=== PATIENT | male | born 1940 | race Caucasian/White ===

== ENCOUNTER 2017-10-07 06:04 | Day surgery (SDC) | payer MEDICARE, MEDICAID, SELFPAY ==
[2017-10-07] VITALS (13 sets, daily range): BP systolic 90–180; BP diastolic 65–98; PULSE 78–117; RESP 16–18; TEMP 36.3–43; O2SAT 93–100
--- NOTE | 2017-10-07 08:17 | PC.NURSE ---
[id number] fr coudae munoz catheter inserted per Dr. Riley. Multiple attempts per MARK Armenta and Dr. Riley r/t difficulty of insertion. No bleeding or clots noted after insertion. Will continue to monitor urinary output t/o procedure.
--- NOTE | 2017-10-07 09:24 | P.OP_ITS ---
Date of procedure: 10/07/17 Pre-op Diagnosis:: Right inguinal hernia Post-op diagnosis:: same Procedure performed:: Open right inguinal hernia repair with placement of large Bard prefix mesh Surgeon:: Adma Riley MD Anesthesia: ERICA Estimated blood loss (mL): 50 Clinical Note:: Patient is a 77-year-old white male. He is what of a poor historian. He was referred for evaluation of right inguinal hernia. He states that for about 3 or 4 months he has had some swelling in the right groin area. Denies any severe pain. He had what appeared to be a right inguinal hernia on examination. He was sent for cardiology evaluation due to history of chronic atrial fibrillation and was deemed an acceptable risk for surgery. Due to the patient's advanced age, comorbidities, and lack of definite hernia on the left side plan was made for open repair. Operative findings:: There was a large direct hernia with a moderate indirect hernia Operative note:: Patient was taken to the operating room. He was positioned in a supine position. General anesthesia was induced. He did have a Verma catheter placed for bladder decompression and placement was somewhat difficult due to his prior prostate surgery. Ultimately 12 Amharic coud? type catheter was placed. He was prepped and draped in the standard surgical. Oblique incision was made in the right inguinal area and dissection was carried down through subcutaneous tissues and Grover's fascia using electrocautery. External oblique muscle was exposed and cleaned free of extraneous tissues. The muscle was opened along the length of its fibers. There was obvious direct hernia protrusion. The inguinal nerve was unable to be clearly identified due to market attenuation of the tissues. The cord structures were dissected free and encircled with a Jaquelin drain. As stated before there was a large direct hernia. Inspection of the cord revealed an indirect hernia as well. This was dissected free from the cord and herniated preperitoneal fat was able to be reduced into the internal ring. Large sized Bard prefix mesh plug was placed within the region of the internal ring and secured to the shelving edge of the inguinal ligament and to the transversalis muscle with several interrupted 2-0 Vicryl sutures. Next the onlay mesh was secured to the inguinal floor suturing it to Nasim's ligament medially and to the transversalis muscle fascia anteriorly medially with interrupted 2-0 PDS horizontal mattress sutures. There was secured inferiorly and laterally to the shelving edge of the inguinal ligament with running 2-0 PDS. The 2 coat tails were secured to one another with a couple of interrupted 2-0 PDS to reconstruct the internal ring. Cord structures were then returned to the normal anatomic position. There was good hemostasis. External oblique muscle was closed with a running 2-0 Vicryl. Grover's fascia was closed with running 3-0 Vicryl. Skin was closed with running 4-0 Monocryl in a subcuticular fashion. Clean dry sterile dressing was applied. There were no immediate complications. Pathology: none sent Condition: stable Disposition: PACU Complications:: None immediately noted
--- NOTE | 2017-10-07 09:27 | P.PN_ITS ---
[facility] Anesthesia Checklist - Airway Assessment C-Spine Mobility Assessed: Yes (MP2) TMJ Mobility Assessed: Yes Dentition: Edentulous - Anesthesia Plan Anesthesia Risk discussed: Yes Anesthesia Plan: Verified ASA Class: III Anesthesia Type: General [facility] Anesthesia HX I have reviewed the patient's past medical history: Yes Medical History: Reports:: Atrial Fibrillation, Hyperlipidemia, Hypertension, Renal Disease Denies:: Diabetes Mellitus Type 1, Seizures Laterality Cases: Right: Other Other Surgeries: No: Pacemaker Amputation: No Fractures: No Comment: prostate, thumb sx *Family Hx:: Heart Attack
--- NOTE | 2017-10-07 09:27 | HMH.ANESI ---
[facility] Anesthesia Record Part I Intake, IV Amount: 1,200 Estimated blood loss (mL): 10 Urine output (mL): 25 Blood Pressure: 158/68 SaO2: 99 Pulse Rate: 89 Respiratory Rate: 16 Temperature: 97.6 F Patient is:: Drowsy Stable to PACU at:: 07:19
--- NOTE | 2017-10-07 09:30 | HMH.ANESII ---
[facility] Anesthesia Record Part II Discharge Time: 09:50 Destination: [facility] PACU nurse assessment reviewed?: Yes Patient Condition:: Good Anesthesia Complications:: None
--- NOTE | 2017-10-07 09:30 | P.PN_ITS ---
[facility] Anesthesia Record Part II Discharge Time: 09:50 Destination: [facility] PACU nurse assessment reviewed?: Yes Patient Condition:: Good Anesthesia Complications:: None
--- NOTE | 2017-10-07 09:55 | PC.NURSE ---
10/07/17 0955 Pt has hx of chronic afib per ROJELIO Cole report. monitoring and evaluation advisor shows controlled Afib, consistent with reported history/[employer]NEY[employer] aware.
[2017-10-07 17:18] LABS: Microscopic,Cath URINE MICROSCOPIC (MICROSCOPIC)
[2017-10-07 17:24] LABS: Appearance,Urine/Cath CLEAR (Clear); Blood, Urine/Cath 2+ (Negative); Color,Urine/Cath YELLOW (Yellow); Glucose,Urine/Cath (UA) Negative (Negative); Ketones,Urine/Cath Negative (Negative); Leukocyte Esterase,Cath Negative (Negative); Nitrate,Cath Negative (Negative); Protein,Urine/Cath 1+ (Negative); Specific Gravity, Urine/Cath >= 1.030 (1.005-1.030); Urobilinogen,Cath 0.2 EU/dl (0.2)
[2017-10-07 17:55] LABS: Bilirubin,Cath 1+ (Negative)
[2017-10-07 18:21] LABS: RBC,Urine/Cath Occasional # /hpf (0-3)
[2017-10-07 18:22] LABS: Bacteria,Urine/Cath 2+ /lpf
== END 2017-10-07 10:54 | disposition home or self-care (01) ==
LOC: OR 06:08
PROVIDERS: PCP Family Medicine; Visit Provider Surgery
DX: K40.90 Unilateral inguinal hernia, without obstruction or gangrene, not specified as recurrent (principal)
CPT/HCPCS: 49505; 81001; 87086; 96375; J0131; J2405

== ENCOUNTER → 2017-12-07 15:18 | Outpatient (CLI) | payer MEDICARE, MEDICAID, SELFPAY ==
--- NOTE | 2017-12-07 15:23 | XR_ITS ---
XR chest 2V HISTORY: ITS.REASON: COUGH ORDERING PHYSICIAN: Brynn Gill PATIENT AGE: 77 years COMPARISON: To 317 FINDINGS: Unremarkable cardiovascular structures. There are chronic changes in the right upper lobe and right apex. No lobar consolidation or collapse. No effusions or infiltrates. IMPRESSION: Chronic changes, no acute finding
== END ==
PROVIDERS: PCP Nurse Practitioner; Visit Provider Nurse Practitioner
DX: R05 Cough (principal)
CPT/HCPCS: 71046

== ENCOUNTER → 2018-10-12 13:53 | Outpatient (CLI) | payer MEDICARE, MEDICAID, SELFPAY ==
[2018-10-12 16:11] LABS: Prostate Specific Ag Screen 3.1 ng/mL (0.0-4.0)
== END ==
PROVIDERS: Visit Provider Urology
DX: Z12.5 Encounter for screening for malignant neoplasm of prostate (principal); N40.0 Benign prostatic hyperplasia without lower urinary tract symptoms
CPT/HCPCS: 36415; G0103

== ENCOUNTER 2019-05-12 22:55 | Observation (INO) ==
[2019-05-12 23:17] LABS: Basophils % 0.2 % (0.1-2.0); Eosinophils # 0.1 K/mm3 (0.0-0.4); Hematocrit 45.4 % (42.0-52.0); Hemoglobin 14.6 g/dL (14.1-18.0); Lymphocytes # 1.6 K/mm3 (0.7-4.5); Lymphocytes % 13.6 % (10-50); Mean Corpuscular HGB Conc 32.2 g/dL (31.8-35.4); Mean Corpuscular Volume 96.9 fl (80-94); Mean Platelet Volume 7.5 fl (7.4-10.4); Monocytes # 0.6 K/mm3 (0.1-1.0); Monocytes % 4.8 % (1.7-9.3); Neutrophils # 9.7 K/mm3 (1.8-7.8); Neutrophils % 80.4 % (37.0-80.0); Platelet Count 179 K/mm3 (142-424); Red Blood Count 4.69 M/mm3 (4.60-6.20); Red Cell Distribution Width 13.7 % (11.5-17.5); White Blood Count 12.1 K/mm3 (4.8-10.8)
--- NOTE | 2019-05-12 23:19 | Emergency Department Note ---
ED Disposition Clinical Impression: Renal insufficiency, Chronic atrial fibrillation Appendicitis, acute Qualifiers: Acute appendicitis type: unspecified acute appendicitis type Qualified Code(s): K35.80 - Unspecified acute appendicitis Disposition: Admitted As Inpatient Condition on Discharge: Good Referrals: Carlton Quinteros MD [Primary Care Provider] - - Critical Care Critical Care Time: No Attestation: On 05/12/19, the high probability of a clinically significant, sudden or life threatening deterioration of the following system(s) required my full and direct attention, intervention and personal management. The time I documented below is in addition to time spent performing reported procedures but includes the following listed in this critical care notation. Medical Decision Making - Medical Records Medical records reviewed: Yes: I reviewed the patient's medical records. - Lyle Inquiry Pt receiving controlled substance: No Vital Signs: 05/12/19 23:01 05/12/19 23:02 05/12/19 23:31 Temperature 103.2 F H Temperature Source Rectal Pulse Rate [Right] 97 H 125 H 102 H Respiratory Rate 18 22 20 Blood Pressure [Right Arm] 169/92 H 204/142 H 174/80 H Blood Pressure Mean [Right Arm] 117 162 111 Blood Pressure Source [Right Arm] Automatic Cuff Automatic Cuff Automatic Cuff Blood Pressure Position [Right Arm] Supine Supine Supine 02 Sat by Pulse Oximetry 97 98 94 L Oxygen Delivery Method Room Air Room Air Room Air 05/13/19 00:01 05/13/19 01:10 Temperature 100.7 F H Temperature Source Oral Pulse Rate [Right] 95 H 116 H Respiratory Rate 20 Blood Pressure [Right Arm] 179/90 H Blood Pressure Mean [Right Arm] 119 Blood Pressure Source [Right Arm] Automatic Cuff Blood Pressure Position [Right Arm] Supine 02 Sat by Pulse Oximetry 95 Oxygen Delivery Method Room Air - Lab Data Lab results reviewed: Yes: I reviewed the patient's lab results. Lab Results 05/12/19 23:00: WBC 12.1 H, RBC 4.69, Hgb 14.6, Hct 45.4, MCV 96.9 H, MCH 31.2, MCHC 32.2, RDW 13.7, Plt Count 179, MPV 7.5, Neut % (Auto) 80.4 H, Lymph % (Auto) 13.6, [place] % (Auto) 4.8, Eos % (Auto) 1.0, Baso % (Auto) 0.2, Neut # (Auto) 9.7 H, Lymph # (Auto) 1.6, [place] # (Auto) 0.6, Eos # (Auto) 0.1, Baso # (Auto) 0.0 05/12/19 23:00: ESR 17 05/12/19 23:00: Sodium 139, Potassium 3.7, Chloride 99, Carbon Dioxide 30, Anion Gap 13.7, BUN 20 H, Creatinine 1.84 H, Estimated Creat Clear 34, Estimated GFR 36 L, Est GFR ( Amer) 43 L, Glucose 93, Calcium 9.3, Total Bilirubin 0.9, AST 19, ALT 21, Alkaline Phosphatase 96, Troponin I < 0.02, C-Reactive Protein 7.9 H, Total Protein 8.2, Albumin 4.0, Globulin 4.2 H, Albumin/Globulin Ratio 1.0 L 05/12/19 23:10: Lactate 1.1 05/12/19 23:45: Urine Color Yellow, Urine Appearance Clear, Urine pH 6.0, Ur Specific [place] 1.020, Urine Protein Trace, Urine Glucose (UA) Negative, Urine Ketones Negative, Urine Blood 1+, Urine Nitrate Negative, Urine Bilirubin Negative, Urine Urobilinogen 0.2, Ur Leukocyte Esterase Negative, Urine RBC 3-5, Urine WBC Occasional, Urine Bacteria Trace Result diagrams: 05/12/19 23:00 05/12/19 23:00 Orders (Tests/Meds): ED MEDICATIONS Generic Name Dose Route Start Last Admin Trade Name Freq PRN Reason Stop Dose Admin Sodium Chloride 1,000 mls @ 999 mls/hr 05/12/19 23:00 05/12/19 23:51 Sod Chlor 0.9% 1000ml Bag IV 05/13/19 00:00 999 mls/hr .Q1H1M KAREN Administration Ampicillin Sodium/Sulbactam 100 mls @ 200 mls/hr 05/13/19 01:45 Sodium 3 gm/ Sodium Chloride IV 05/27/19 01:44 Q6H KAREN Protocol Discontinued Medications Generic Name Dose Route Start Last Admin Trade Name Freq PRN Reason Stop Dose Admin Acetaminophen 650 mg 05/12/19 23:00 05/12/19 23:52 Acetaminophen 650mg Suppository RC 05/12/19 23:01 650 mg ONCE ONE Administration ORDERS Category Date Time Status CT abdomen pelvis wo con Stat Cat Scan 05/13/19 00:21 Taken XR chest portable Stat Exams 05/12/19 22:58 Taken Blood Culture Stat Micro 05/12/19 23:10 Received - Radiology Data #1 Image(s): Chest Image Reviewed: Yes I reviewed the patient's radiology image Preliminary Findings: Abnormal (sl changes rt base ) - CT Data CT Scan: Abdomen, Pelvis Time Received: 01:[address] Reviewed: Yes: I have viewed the radiologist's interpretation Preliminary Findings: Abnormal (acute appendicitis) - ECG Data Tracing #1 Arrhythmias present: afib Ischemic changes: non-specific ST-T wave changes ECG compared to prior tracings: there are no significant changes - Physician Consults Physician Consulted: cate Reason -: Admission Additional Consult: natalya Reason -: Pt condition Fever HPI - General Chief Complaint: Fever Stated Complaint: fever Time Seen by Provider: 05/12/19 23:19 Mode of Arrival: EMS Source of Information: Patient, Spouse, EMS, Medical Record Limitations: No Limitations Description of Symptoms (Recalled from ER Triage Doc. by RN): Pt started shaking with a fever at home, pt has some confusion - History of Present Illness HPI Narrative: pt with acute onset of shaking and inc confusion tonight with assoc fever and occ cough with abd pain but no diarrhea and no def gu sx or rash and no known exposure MD complaint: fever, weakness, other (confusion ) Associated symptoms: chills, cough, confusion Treatments prior to arrival fever: none - Related Data Home Medications Medication Instructions Recorded Confirmed Aspirin [Aspir 81] 81 mg PO DAILY 10/06/17 05/12/19 Donepezil HCl [Aricept 10mg 10 mg PO HS 05/12/19 05/12/19 tablet] Lisinopril [Lisinopril 5mg 5 mg PO DAILY 05/12/19 05/12/19 Tablet] Oxybutynin Chloride [Oxybutynin 15 mg PO DAILY 05/12/19 05/12/19 Chloride ER] Allergies Allergy/AdvReac Type Severity Reaction Status Date / Time No Known Allergies Allergy Verified 10/12/18 13:28 [facility] History - Hepatitis A Screen Drug use history?: No High risk sexual behaviors?: No History of sexually transmitted infection?: No Currently employed?: No Childcare worker?: No Do you have indoor plumbing?: Yes Do you have electricity?: Yes Attestation statement:: This patient has been screened for Hepatitis A risk factors. I have reviewed the patient's past medical history: Yes Medical History: Reports:: Atrial Fibrillation, Hyperlipidemia, Hypertension, Renal Disease Denies:: Diabetes Mellitus Type 1, Diabetes Mellitus Type 2, Internal Pacemaker, Seizures Laterality Cases: Right: Other Other Surgeries: Yes: Colonoscopy, Hernia Repair, Other (Prostate Surgery). No: Pacemaker Amputation: No Fractures: No Comment: prostate surgery,orthopedic surgery - Social History Smoking Status: Former smoker Tobacco Type: cigarettes Alcohol Intake: former Alcohol Intake Frequency:: other Substance Use Type: denies use Occupational Status: retired Housing: house Household Members: spouse, family Family Hx:: Heart Attack, Hyperlipidemia, Hypertension ROS Obtained: Yes All systems reviewed & no additional complaints - Constitutional Constitutional: Reports as per HPI, Reports chills, Reports fever(s), Reports weakness - Eyes Eyes: Denies change in vision - ENT Ears, Nose, Mouth, and Throat: Denies sore throat - Cardiovascular Cardiovascular: Denies chest pain - Respiratory Respiratory: Yes cough - Gastrointestinal Gastrointestingal: Reports: as per HPI, abdominal pain, nausea. Denies: diarrhea, black, tarry stools, vomiting - Genitourinary Male Genitourinary: Denies difficulty urinating, Denies hematuria - Musculoskeletal Musculoskeletal: Denies joint pain, Denies joint swelling - Integumentary/Breasts Skin/Breast: Denies rash - Neurologic Neurologic: Denies abnormal speech, Reports confusion, Denies focal weakness, Denies seizure-like activity Physical Exam - General General appearance: alert - Head Head exam: normocephalic - Eye Eye exam: Present: PERRL, EOMI. Absent: scleral icterus - ENT ENT exam: Present: mucous membranes dry - Neck Neck exam: Present: trachea midline - Respiratory Respiratory exam: Present: normal lung sounds bilaterally. Absent: respiratory distress - Cardiovascular Cardiovascular exam: Present: regular rate, systolic murmur, +S4 - Abdominal Exam Abdominal exam: Present: soft, tenderness, tenderness at [place]. Absent: guarding, rebound, rigidity Abdominal tenderness: Present: RLQ, moderate - Extremities Exam Extremities exam: Present: full ROM, pedal edema - Neurological Exam Neurological exam: Present: alert, CN II-XII intact - Psychiatric Psychiatric exam: Present: normal affect - Skin Skin exam: Absent: rash
[2019-05-12 23:37] LABS: Alanine Aminotransferase 21 U/L (12-78); Alkaline Phosphatase 96 U/L (46-116); Anion Gap 13.7 mEq/L (5-15); Aspartate Amino Transferase 19 U/L (15-37); Bilirubin,Total 0.9 mg/dL (0.2-1.0); Blood Urea Nitrogen 20 mg/dL (7-18); C-Reactive Protein 7.9 mg/dL (0.0-0.9); Calcium 9.3 mg/dL (8.5-10.1); Carbon Dioxide 30 mmol/L (21.0-32.0); Chloride 99 mmol/L (98-107); Globulin 4.2 gm/dl (1.3-3.2); Glucose 93 mg/dL (74-106); Sodium 139 mmol/L (136-145); Total Protein,Serum 8.2 gm/dL (6.4-8.2)
[2019-05-12 23:54] LABS: Microscopic, Urine URINE MICROSCOPIC (MICROSCOPIC)
[2019-05-12 23:56] LABS: Appearance,Urine CLEAR (Clear); Bilirubin,Urine Negative (Negative); Blood, Urine 1+ (Negative); Color,Urine YELLOW (Yellow); Glucose,Urine (UA) Negative (Negative); Ketones,Urine Negative (Negative); Leukocyte Esterase,Urine Negative (Negative); Protein,Urine TRACE (Negative); Urobilinogen,Urine 0.2 EU/dl (0.2)
[2019-05-13 00:05] LABS: Bacteria,Urine Trace /lpf; WBC,Urine Occasional #/hpf (0-3)
[2019-05-13 05:53] LABS: Basophils % 0.1 % (0.1-2.0); Hematocrit 37.7 % (42.0-52.0); Lymphocytes # 1.1 K/mm3 (0.7-4.5); Lymphocytes % 8.1 % (10-50); Mean Corpuscular HGB Conc 32.4 g/dL (31.8-35.4); Mean Corpuscular Volume 95.3 fl (80-94); Mean Platelet Volume 7.9 fl (7.4-10.4); Monocytes # 0.9 K/mm3 (0.1-1.0); Monocytes % 7.2 % (1.7-9.3); Neutrophils # 11.1 K/mm3 (1.8-7.8); Neutrophils % 84.6 % (37.0-80.0); Platelet Count 134 K/mm3 (142-424); Red Blood Count 3.96 M/mm3 (4.60-6.20); Red Cell Distribution Width 13.5 % (11.5-17.5); White Blood Count 13.1 K/mm3 (4.8-10.8)
[2019-05-13 05:57] LABS: INR 1.1 (0.9-1.1); Prothrombin Time 11.4 seconds (9.4-11.8)
[2019-05-13 05:58] LABS: Calcium 8.4 mg/dL (8.5-10.1)
[2019-05-13 06:03] LABS: Hemoglobin 12.4 g/dL (14.1-18.0)
--- NOTE | 2019-05-13 06:40 | Consult Report ---
*Admission Date: 05/13/19 *Reason for consult:: Abdominal pain *History of present illness: Patient is a 78-year-old male with history of chronic atrial fibrillation. He is somewhat of a poor historian. I had actually seen the patient previously and last year performed open right inguinal hernia repair. He had been in his usual state of health and then yesterday evening began developing some shaking chills and fevers. He reportedly had some right pelvic and right lower quadrant discomfort. He presented to the emergency department where he was seen and evaluated. Work-up included CT scan which revealed findings of a mildly distended appendix with periappendiceal stranding consistent with non-comp licated acute appendicitis. Review of Systems - Review of Systems Review of systems:: unable to obtain - *Neurologic Reports confusion, Reports weakness, Denies abnormal speech, Denies localized weakness, Denies seizure-like activity [facility] History Medical History: Reports:: Atrial Fibrillation, Hyperlipidemia, Hypertension, Renal Disease Denies:: Diabetes Mellitus Type 1, Diabetes Mellitus Type 2, Internal Pacemaker, Seizures *Have you ever received a pneumonia vaccine?: Yes *Have you received a flu vaccine this season?: No Other Medical History: Reports: Cataracts Laterality Cases: Right: Other Other Surgeries: Yes: Colonoscopy, Hernia Repair, Other (Prostate Surgery). No: Pacemaker Amputation: No Fractures: No - *Social History Educational Level: Attended Grade School Smoking Status: Former smoker Tobacco Type: cigarettes Alcohol Intake: never Alcohol Intake Frequency:: other Substance Use Type: denies use *Occupational Status:: retired Housing: house Household Members: spouse, family *Travel in the last 8 weeks: None - Psychiatric History Expresses thoughts of harming self/others: None Suicide Plan Description: No Plan Family Hx:: Cancer Meds Home Medications Medication Instructions Recorded Confirmed Type Aspirin [Aspir 81] 81 mg PO DAILY 10/06/17 05/13/19 History Donepezil HCl [Aricept 10mg 10 mg PO HS 05/12/19 05/13/19 History tablet] Lisinopril [Lisinopril 5mg 5 mg PO DAILY 05/12/19 05/13/19 History Tablet] Oxybutynin Chloride [Oxybutynin 15 mg PO HS 05/12/19 05/13/19 History Chloride ER] Pravastatin Sodium [Pravachol 40mg 40 mg PO DAILY 05/13/19 05/13/19 History Tablet] Allergies Allergy/AdvReac Type Severity Reaction Status Date / Time No Known Allergies Allergy Verified 10/12/18 13:28 Exam Vital signs and Labs for Last 24 Hours: Temp Pulse Resp BP Pulse Ox 101.2 F H 89 16 143/73 H 96 05/13/19 03:22 05/13/19 03:22 05/13/19 03:22 05/13/19 03:22 05/13/19 04:15 Laboratory Results - last 24 hr 05/12/19 23:00: WBC 12.1 H, RBC 4.69, Hgb 14.6, Hct 45.4, MCV 96.9 H, MCH 31.2, MCHC 32.2, RDW 13.7, Plt Count 179, MPV 7.5, Neut % (Auto) 80.4 H, Lymph % (Auto) 13.6, [place] % (Auto) 4.8, Eos % (Auto) 1.0, Baso % (Auto) 0.2, Neut # (Auto) 9.7 H, Lymph # (Auto) 1.6, [place] # (Auto) 0.6, Eos # (Auto) 0.1, Baso # (Auto) 0.0 05/12/19 23:00: ESR 17 05/12/19 23:00: Sodium 139, Potassium 3.7, Chloride 99, Carbon Dioxide 30, Anion Gap 13.7, BUN 20 H, Creatinine 1.84 H, Estimated Creat Clear 34, Estimated GFR 36 L, Est GFR ( Amer) 43 L, Glucose 93, Calcium 9.3, Total Bilirubin 0.9, AST 19, ALT 21, Alkaline Phosphatase 96, Troponin I < 0.02, C-Reactive Protein 7.9 H, Total Protein 8.2, Albumin 4.0, Globulin 4.2 H, Albumin/Globulin Ratio 1.0 L 05/12/19 23:10: Lactate 1.1 05/12/19 23:45: Urine Color Yellow, Urine Appearance Clear, Urine pH 6.0, Ur Specific [place] 1.020, Urine Protein Trace, Urine Glucose (UA) Negative, Urine Ketones Negative, Urine Blood 1+, Urine Nitrate Negative, Urine Bilirubin Negative, Urine Urobilinogen 0.2, Ur Leukocyte Esterase Negative, Urine RBC 3-5, Urine WBC Occasional, Urine Bacteria Trace 05/13/19 05:32: WBC 13.1 H, RBC 3.96 L, Hgb 12.4 L D, Hct 37.7 L, MCV 95.3 H, MCH 30.9, MCHC 32.4, RDW 13.5, Plt Count 134 L D, MPV 7.9, Neut % (Auto) 84.6 H, Lymph % (Auto) 8.1 L, [place] % (Auto) 7.2, Eos % (Auto) 0.0 L, Baso % (Auto) 0.1, Neut # (Auto) 11.1 H, Lymph # (Auto) 1.1, [place] # (Auto) 0.9, Eos # (Auto) 0.0, Baso # (Auto) 0.0 05/13/19 05:32: PT 11.4, INR 1.10 05/13/19 05:32: Sodium 139, Potassium 4.0, Chloride 104, Carbon Dioxide 28, Anion Gap 11.0, BUN 20 H, Creatinine 1.71 H, Estimated Creat Clear 33, Estimated GFR 39 L, Est GFR ( Amer) 47 L, Glucose 110 H, Calcium 8.4 L I & O for Last 24 hours: Intake & Output 05/10/19 05/11/19 05/12/19 05/13/19 11:59 11:59 11:59 11:59 Intake Total 1198 / 1198 Output Total 600 / 600 Balance 598 / 598 Weight 144 lb - *Routine HEENT Exam Head: Present: normocephalic Eye: Present: EOMI, PERRL ENT: Present: mucous membranes moist - *Routine Neck Exam Present: supple. Absent: lymphadenopathy - *Routine Respiratory Exam Present: CTA bilaterally - *Routine Cardiovascular Exam Present: Normal S1, Normal S2 - *Routine Abdominal Exam Present: soft, normoactive bowel sounds, tenderness Comments: He has some tenderness in the left lower quadrant and right lower quadrant with voluntary guarding. - *Routine Extremities Exam Absent: cyanosis, clubbing, edema - *Routine Skin Exam Present: warm. Absent: rash - *Routine Neurological Exam Present: alert, oriented X3 - Detailed Eye Exam Eyelids: Left normal inspection Results - Labs 05/13/19 05:32 05/13/19 05:32 Laboratory Results - last 24 hr 05/12/19 23:00: WBC 12.1 H, RBC 4.69, Hgb 14.6, Hct 45.4, MCV 96.9 H, MCH 31.2, MCHC 32.2, RDW 13.7, Plt Count 179, MPV 7.5, Neut % (Auto) 80.4 H, Lymph % (Auto) 13.6, [place] % (Auto) 4.8, Eos % (Auto) 1.0, Baso % (Auto) 0.2, Neut # (Auto) 9.7 H, Lymph # (Auto) 1.6, [place] # (Auto) 0.6, Eos # (Auto) 0.1, Baso # (Auto) 0.0 05/12/19 23:00: ESR 17 05/12/19 23:00: Sodium 139, Potassium 3.7, Chloride 99, Carbon Dioxide 30, Anion Gap 13.7, BUN 20 H, Creatinine 1.84 H, Estimated Creat Clear 34, Estimated GFR 36 L, Est GFR ( Amer) 43 L, Glucose 93, Calcium 9.3, Total Bilirubin 0.9, AST 19, ALT 21, Alkaline Phosphatase 96, Troponin I < 0.02, C-Reactive Protein 7.9 H, Total Protein 8.2, Albumin 4.0, Globulin 4.2 H, Albumin/Globulin Ratio 1.0 L 05/12/19 23:10: Lactate 1.1 05/12/19 23:45: Urine Color Yellow, Urine Appearance Clear, Urine pH 6.0, Ur Specific [place] 1.020, Urine Protein Trace, Urine Glucose (UA) Negative, Urine Ketones Negative, Urine Blood 1+, Urine Nitrate Negative, Urine Bilirubin Negative, Urine Urobilinogen 0.2, Ur Leukocyte Esterase Negative, Urine RBC 3-5, Urine WBC Occasional, Urine Bacteria Trace 05/13/19 05:32: WBC 13.1 H, RBC 3.96 L, Hgb 12.4 L D, Hct 37.7 L, MCV 95.3 H, MCH 30.9, MCHC 32.4, RDW 13.5, Plt Count 134 L D, MPV 7.9, Neut % (Auto) 84.6 H, Lymph % (Auto) 8.1 L, [place] % (Auto) 7.2, Eos % (Auto) 0.0 L, Baso % (Auto) 0.1, Neut # (Auto) 11.1 H, Lymph # (Auto) 1.1, [place] # (Auto) 0.9, Eos # (Auto) 0.0, Baso # (Auto) 0.0 05/13/19 05:32: PT 11.4, INR 1.10 05/13/19 05:32: Sodium 139, Potassium 4.0, Chloride 104, Carbon Dioxide 28, Anion Gap 11.0, BUN 20 H, Creatinine 1.71 H, Estimated Creat Clear 33, Estimated GFR 39 L, Est GFR ( Amer) 47 L, Glucose 110 H, Calcium 8.4 L Assessment and Plan - Assessment and plan all Dx Assessment and Plan for all problems:: Plan for laparoscopic possibly open appendectomy
--- NOTE | 2019-05-13 07:07 | Progress Note ---
[facility] Anesthesia Checklist - Structural Data Admitted From: Inpatient Planned Operative Procedure/s: lap appy Consent for Planned Operative Procedure(s) Verified: Yes - Additional verifications Anesthesia Reactions: No Hx Blood Transfusions: No - Airway Assessment C-Spine Mobility Assessed: Yes TMJ Mobility Assessed: Yes Dentition: Edentulous - Neurological Assessment Level of Consciousness: Awake, Alert, Follows Commands - Anesthesia Plan Anesthesia Risk discussed: Yes Anesthesia Plan: Verified ASA Class: II Anesthesia Type: General [facility] History I have reviewed the patient's past medical history: Yes Medical History: Reports:: Atrial Fibrillation, Hyperlipidemia, Hypertension, Renal Disease Denies:: Diabetes Mellitus Type 1, Diabetes Mellitus Type 2, Internal Pacemaker, Seizures *Have you ever received a pneumonia vaccine?: Yes *Have you received a flu vaccine this season?: No Other Medical History: Reports: Cataracts Laterality Cases: Right: Other Other Surgeries: Yes: Colonoscopy, Hernia Repair, Other (Prostate Surgery). No: Pacemaker Amputation: No Fractures: No - *Social History Educational Level: Attended Grade School Smoking Status: Former smoker Tobacco Type: cigarettes Alcohol Intake: never Alcohol Intake Frequency:: other Substance Use Type: denies use *Occupational Status:: retired Housing: house Household Members: spouse, family *Travel in the last 8 weeks: None - Psychiatric History Expresses thoughts of harming self/others: None Suicide Plan Description: No Plan Family Hx:: Cancer
--- NOTE | 2019-05-13 07:44 | Pharmacy Consult Notes ---
[facility] Pharmacy VTE Monitoring - Patient Demographics Admission date: 05/13/19 Report Date: 05/13/19 Time: 07:44 Allergies/Adverse Reactions: Patient Allergies No Known Allergies Allergy (Verified 10/12/18 13:28) Height: 1.75 m Weight: 65.317 kg Patient Problems: Current Active Problems Appendicitis, acute (Acute) Renal insufficiency (Chronic) Chronic atrial fibrillation (Chronic) - VTE Risk Labs: VTE Related Lab Results Hgb 12.4 g/dL (14.1-18.0) L D 05/13/19 05:32 Hct 37.7 % (42.0-52.0) L 05/13/19 05:32 Plt Count 134 K/mm3 (142-424) L D 05/13/19 05:32 PT 11.4 seconds (9.4-11.8) 05/13/19 05:32 INR 1.10 (0.9-1.1) 05/13/19 05:32 BUN 20 mg/dL (7-18) H 05/13/19 05:32 Creatinine 1.71 mg/dL (0.70-1.30) H 05/13/19 05:32 Estimated Creat Clear 33 mL/min (50-200) 05/13/19 05:32 Was VTE Risk Assessment Performed: Yes VTE Score: 1 VTE Risk Level: Very Low Risk Clinical Trial Participant: No - Prophylaxis VTE Prophylaxis Ordered?: Yes Types of VTE Prophylaxis: TEDS Knee High
--- NOTE | 2019-05-13 08:15 | Operative Note ---
Date of procedure: 05/13/19 Pre-op Diagnosis:: Acute appendicitis Post-op Diagnosis:: Same Procedure performed:: Laparoscopic appendectomy Surgeon:: Adam Riley MD CIVIL ENGINEERING TEACHER:: Antonio Miller Anesthesia: ERICA Estimated blood loss (mL): 10 Clinical Note:: Patient is a 78-year-old male with history of chronic atrial fibrillation. He is somewhat of a poor historian. I had actually seen the patient previously and last year performed open right inguinal hernia repair. He had been in his usual state of health and then yesterday evening began developing some shaking chills and fevers. He reportedly had some right pelvic and right lower quadrant discomfort. He presented to the emergency department where he was seen and evaluated. Work-up included CT scan which revealed findings of a mildly distended appendix with periappendiceal stranding consistent with non- complicated acute appendicitis. Operative findings:: Patient had an acutely inflamed markedly indurated suppurative appendicitis with some purulent fluid. It was densely adherent into the right pelvis posterior to the terminal ileum. Operative note:: Patient was taken to the operating room. He was positioned in a supine position. General anesthesia was induced via endotracheal tube. His abdomen was prepped and draped in the standard surgical fashion. Please note that he had Verma catheter placed prior to the procedure. Subumbilical skin incision was made and while performing abdominal wall lift Veress needle was inserted. CO2 pneumoperitoneum was achieved to 15 mmHg. 12 mm optical trocar was inserted at the umbilicus. Intraperitoneal contents were visualized. He had some evidence of patchy erythema and edema of the small bowel consistent with peritonitis and mild ileus. 5 mm trocar was inserted in the suprapubic location and an additional 5 mm trocar was inserted in the right upper abdomen. Patient was positioned in Trendelenburg left side down. The small bowel was mobilized medially. The tip of the cecum was identified and there was some purulent fluid in the region of the appendix. Ultimately the appendix was identified and found to be markedly thickened and indurated and densely adherent to the right posterior pelvic sidewall posterior to the terminal ileum. Dissection was carried out mostly using blunt dissection and with some difficulty the appendix was delivered anteriorly. The appendix was suppurative but there was no clear perforation noted. Although, as previously mentioned, there is some cloudy purulent fluid in the right pelvis and there was concern for possible perforation initially. The mesoappendix was carefully divided with RODERICK ultrasonic harmonic lalit with care taken to coagulate the appendiceal artery in the process. Dissection was carried down to the base of the appendix using RODERICK ultrasonic harmonic lalit. The appendix was divided at its base with an endoscopic GEORGIE linear cutting stapling device. The appendix was placed within an Endo Catch retrieval device and removed from the peritoneal cavity via the umbilical trocar site. Some irrigation was performed of the right pelvis and pericecal region. There appeared to be good hemostasis. Trochars were removed as CO2 pneumoperitoneum was evacuated. Fascia at the umbilicus was closed with several interrupted 0 Vicryl sutures. Local anesthetic was infiltrated. Skin incisions were closed with 4-0 Monocryl in subcuticular fashion. Steri-Strips and dressings were applied. Condition: stable Disposition: PACU Specimens:: Appendix Complications:: None immediately apparent
--- NOTE | 2019-05-13 08:19 | Progress Note ---
[facility] Anesthesia Record Part I Intake, IV Amount: 450 Estimated blood loss (mL): 10 Urine output (mL): 200 Blood Products used (#): none Blood Pressure: 196/93 SaO2: 99 Pulse Rate: 112 Respiratory Rate: 18 Temperature: 98.1 F Patient is:: Drowsy, Stable Stable to PACU at:: 08:14
--- NOTE | 2019-05-13 08:20 | Progress Note ---
[facility] Anesthesia Record Part II Discharge Time: 08:44 Destination: Medical Surgical Department PACU nurse assessment reviewed?: Yes Patient Condition:: Good Anesthesia Complications:: None Swallowing reflex intact?: Yes Cyanosis?: No
--- NOTE | 2019-05-13 09:12 | History & Physical Report ---
*Admission Date: 05/13/19 <Abril Restrepo 05/13/19 09:15> *Chief complaint: abdominal pain <Abril Restrepo 05/13/19 09:15> *History of present illness: Mr. Mclean is a 78 yo male with a history of chronic atrial fibrillation who presented to the ER with chills, fever, and RLQ abdo zoila pain. He had been in his usual state of health until yesterday evening when the shaking, chills, and fevers began while he was playing cards. He then had some right pelvic and right lower quadrant discomfort. He was evaluated in the ER and a CT scan was done showing a mildly distended appendix with periappendiceal stranding consistent with non-complicated acute appendicitis. Dr. Riley was consulted, saw the patient, and performed and emergent laparoscopic appendectomy. The patient seems to have tolerated the procedure well. He is currently eating Jello and states his abdominal pain is much better. <Abril Restrepo 05/13/19 10:34> [facility] History I have reviewed the patient's past medical history: Yes <Abril Restrepo 05/13/19 09:15> Medical History: Reports:: Atrial Fibrillation, Hyperlipidemia, Hypertension, Renal Disease Denies:: Diabetes Mellitus Type 1, Diabetes Mellitus Type 2, Internal Pacemaker, Seizures <Abril Restrepo 05/13/19 09:15> *Have you ever received a pneumonia vaccine?: Yes <Abril Restrepo 05/13/19 09:15> *Have you received a flu vaccine this season?: No <Abril Restrepo 05/13/19 09:15> Other Medical History: Reports: Cataracts <Abril Restrepo 05/13/19 09:15> Laterality Cases: Right: Other <Abril Restrepo 05/13/19 09:15> Other Surgeries: Yes: Colonoscopy, Hernia Repair, Other (Prostate Surgery, amputation distal phalanx of left thumb). No: Pacemaker <Abril Restrepo 05/13/19 10:34> Amputation: No <Abril Restrepo 05/13/19 09:15> Fractures: No <Abril Restrepo 05/13/19 09:15> - *Social History Educational Level: Attended Grade School <Abril Restrepo 05/13/19 09:15> Smoking Status: Former smoker <OsmeltajAbril 05/13/19 09:15> Tobacco Type: cigarettes <OsmeltajAbril 05/13/19 09:15> Alcohol Intake: never <OsmeltajAbril 05/13/19 09:15> Alcohol Intake Frequency:: other <Richmond Restrepoa 05/13/19 09:15> Substance Use Type: denies use <OsmeltajAbril 05/13/19 09:15> *Occupational Status:: retired <LauroAbril 05/13/19 09:15> Housing: house <LauroAbril 05/13/19 09:15> Household Members: spouse, family <OsmeltajAbril 05/13/19 09:15> *Travel in the last 8 weeks: None <OsmeltajAbril 05/13/19 09:15> - Psychiatric History Expresses thoughts of harming self/others: None <LauroAbril 05/13/19 09:15> Suicide Plan Description: No Plan <OsmeltajAbril 05/13/19 09:15> Family Hx:: Cancer <OsmeltajAbril 05/13/19 09:15> Review of Systems - Constitutional Reports chills, Reports fever(s), Reports weakness <LauroAbril 05/13/19 10:34> - Eyes Denies blurry vision, Denies double vision <LauroAbril 05/13/19 10:34> - ENT Denies nasal congestion, Denies sore throat <LauroAbril 05/13/19 10:34> - *Cardiovascular Denies chest pain, Denies shortness of breath <LauroAbril 05/13/19 10:34> - *Respiratory Reports cough, Denies shortness of breath <LauroAbril 05/13/19 10:34> - *Gastrointestinal Reports abdominal pain (RLQ - resolved now), Denies loose stools, Denies nausea, Denies vomiting <LauroAbril 05/13/19 10:34> - *Genitourinary Denies difficulty urinating, Denies painful urination <LauroAbril 05/13/19 10:34> - *Musculoskeletal Reports joint pain (low back) <Abril Restrepo - 05/13/19 10:34> - *Neurologic Reports confusion, Reports weakness, Denies abnormal speech, Denies localized weakness, Denies headache(s), Denies seizure-like activity <Abril Restrepo - 05/13/19 10:34> Meds Home Medications Medication Instructions Recorded Confirmed Type Aspirin [Aspir 81] 81 mg PO DAILY 10/06/17 05/13/19 History Donepezil HCl [Aricept 10mg 10 mg PO HS 05/12/19 05/13/19 History tablet] Lisinopril [Lisinopril 5mg 5 mg PO DAILY 05/12/19 05/13/19 History Tablet] Oxybutynin Chloride [Oxybutynin 15 mg PO HS 05/12/19 05/13/19 History Chloride ER] Pravastatin Sodium [Pravachol 40mg 40 mg PO HS 05/13/19 05/13/19 History Tablet] <Carlton Quinteros - 05/13/19 13:36> Allergies Allergy/AdvReac Type Severity Reaction Status Date / Time No Known Allergies Allergy Verified 10/12/18 13:28 <Carlton Quinteros - 05/13/19 13:36> Exam Vital signs and Labs for Last 24 Hours: Temp Pulse Resp BP Pulse Ox 97.7 F 79 14 149/73 H 96 05/13/19 13:15 05/13/19 13:15 05/13/19 13:15 05/13/19 13:15 05/13/19 13:15 Laboratory Results - last 24 hr 05/12/19 23:00: WBC 12.1 H, RBC 4.69, Hgb 14.6, Hct 45.4, MCV 96.9 H, MCH 31.2, MCHC 32.2, RDW 13.7, Plt Count 179, MPV 7.5, Neut % (Auto) 80.4 H, Lymph % (Auto) 13.6, [place] % (Auto) 4.8, Eos % (Auto) 1.0, Baso % (Auto) 0.2, Neut # (Auto) 9.7 H, Lymph # (Auto) 1.6, Knott # (Auto) 0.6, Eos # (Auto) 0.1, Baso # (Auto) 0.0 05/12/19 23:00: ESR 17 05/12/19 23:00: Sodium 139, Potassium 3.7, Chloride 99, Carbon Dioxide 30, Anion Gap 13.7, BUN 20 H, Creatinine 1.84 H, Estimated Creat Clear 34, Estimated GFR 36 L, Est GFR ( Amer) 43 L, Glucose 93, Calcium 9.3, Total Bilirubin 0.9, AST 19, ALT 21, Alkaline Phosphatase 96, Troponin I < 0.02, C-Reactive Protein 7.9 H, Total Protein 8.2, Albumin 4.0, Globulin 4.2 H, Albumin/Globulin Ratio 1.0 L 05/12/19 23:10: Lactate 1.1 05/12/19 23:45: Urine Color Yellow, Urine Appearance Clear, Urine pH 6.0, Ur Specific [place] 1.020, Urine Protein Trace, Urine Glucose (UA) Negative, Urine Ketones Negative, Urine Blood 1+, Urine Nitrate Negative, Urine Bilirubin Negative, Urine Urobilinogen 0.2, Ur Leukocyte Esterase Negative, Urine RBC 3-5, Urine WBC Occasional, Urine Bacteria Trace 05/13/19 05:32: WBC 13.1 H, RBC 3.96 L, Hgb 12.4 L D, Hct 37.7 L, MCV 95.3 H, MCH 30.9, MCHC 32.4, RDW 13.5, Plt Count 134 L D, MPV 7.9, Neut % (Auto) 84.6 H, Lymph % (Auto) 8.1 L, [place] % (Auto) 7.2, Eos % (Auto) 0.0 L, Baso % (Auto) 0.1, Neut # (Auto) 11.1 H, Lymph # (Auto) 1.1, Knott # (Auto) 0.9, Eos # (Auto) 0.0, Baso # (Auto) 0.0 05/13/19 05:32: PT 11.4, INR 1.10 05/13/19 05:32: Sodium 139, Potassium 4.0, Chloride 104, Carbon Dioxide 28, Ani on Gap 11.0, BUN 20 H, Creatinine 1.71 H, Estimated Creat Clear 33, Estimated GFR 39 L, Est GFR ( Amer) 47 L, Glucose 110 H, Calcium 8.4 L <Carlton Quinteros - 05/13/19 13:36> Temp Pulse Resp BP Pulse Ox 98.1 F 112 H 18 196/93 H 96 05/13/19 08:19 05/13/19 08:19 05/13/19 08:19 05/13/19 08:19 05/13/19 04:15 Laboratory Results - last 24 hr 05/12/19 23:00: WBC 12.1 H, RBC 4.69, Hgb 14.6, Hct 45.4, MCV 96.9 H, MCH 31.2, MCHC 32.2, RDW 13.7, Plt Count 179, MPV 7.5, Neut % (Auto) 80.4 H, Lymph % (Auto) 13.6, [place] % (Auto) 4.8, Eos % (Auto) 1.0, Baso % (Auto) 0.2, Neut # (Auto) 9.7 H, Lymph # (Auto) 1.6, Knott # (Auto) 0.6, Eos # (Auto) 0.1, Baso # (Auto) 0.0 05/12/19 23:00: ESR 17 05/12/19 23:00: Sodium 139, Potassium 3.7, Chloride 99, Carbon Dioxide 30, Anion Gap 13.7, BUN 20 H, Creatinine 1.84 H, Estimated Creat Clear 34, Estimated GFR 36 L, Est GFR ( Amer) 43 L, Glucose 93, Calcium 9.3, Total Bilirubin 0.9, AST 19, ALT 21, Alkaline Phosphatase 96, Troponin I < 0.02, C-Reactive Protein 7.9 H, Total Protein 8.2, Albumin 4.0, Globulin 4.2 H, Albumin/Globulin Ratio 1.0 L 05/12/19 23:10: Lactate 1.1 05/12/19 23:45: Urine Color Yellow, Urine Appearance Clear, Urine pH 6.0, Ur Specific [place] 1.020, Urine Protein Trace, Urine Glucose (UA) Negative, Urine Ketones Negative, Urine Blood 1+, Urine Nitrate Negative, Urine Bilirubin Negative, Urine Urobilinogen 0.2, Ur Leukocyte Esterase Negative, Urine RBC 3-5, Urine WBC Occasional, Urine Bacteria Trace 05/13/19 05:32: WBC 13.1 H, RBC 3.96 L, Hgb 12.4 L D, Hct 37.7 L, MCV 95.3 H, MCH 30.9, MCHC 32.4, RDW 13.5, Plt Count 134 L D, MPV 7.9, Neut % (Auto) 84.6 H, Lymph % (Auto) 8.1 L, K[place] % (Auto) 7.2, Eos % (Auto) 0.0 L, Baso % (Auto) 0.1, Neut # (Auto) 11.1 H, Lymph # (Auto) 1.1, Knott # (Auto) 0.9, Eos # (Auto) 0.0, Baso # (Auto) 0.0 05/13/19 05:32: PT 11.4, INR 1.10 05/13/19 05:32: Sodium 139, Potassium 4.0, Chloride 104, Carbon Dioxide 28, Anion Gap 11.0, BUN 20 H, Creatinine 1.71 H, Estimated Creat Clear 33, Estimated GFR 39 L, Est GFR ( Amer) 47 L, Glucose 110 H, Calcium 8.4 L <Abril Restrepo - 05/13/19 09:15> I & O for Last 24 hours: Intake & Output 05/11/19 05/12/19 05/13/19 05/14/19 11:59 11:59 11:59 11:59 Intake Total 1648 / 1648 1430 / 1430 Output Total 1075 / 1075 1100 / 1100 Balance 573 / 573 330 / 330 Weight 144 lb <Carlton Quinteros Adin - 05/13/19 13:36> Intake & Output 05/10/19 05/11/19 05/12/19 05/13/19 11:59 11:59 11:59 11:59 Intake Total 1648 / 1648 Output Total 600 / 600 Balance 1048 / 1048 Weight 144 lb <Abril Restrepo - 05/13/19 09:15> - Constitutional no acute distress <Abril Restrepo - 05/13/19 10:34> - *Routine HEENT Exam Head: Present: normocephalic <Abril Restrepo - 05/13/19 10:34> Eye: Present: EOMI, PERRL <Abril Restrepo - 05/13/19 10:34> ENT: Present: mucous membranes dry <Abril Restrepo 05/13/19 10:34> - *Routine Neck Exam Present: supple. Absent: lymphadenopathy <Abril Restrepo 05/13/19 10:34> - *Routine Respiratory Exam Present: decreased breath sounds, CTA bilaterally <Abril Restrepo 05/13/19 10:34> - *Routine Cardiovascular Exam Present: irregularly irregular <Abril Restrepo 05/13/19 10:34> - *Routine Abdominal Exam Present: soft, normoactive bowel sounds, tenderness (around surgical incision sites) <Abril Restrepo 05/13/19 10:34> - *Routine Extremities Exam Absent: cyanosis, clubbing, edema <Abril Restrepo 05/13/19 10:34> - *Routine Skin Exam Present: warm. Absent: rash <Abril Restrepo 05/13/19 10:34> - *Routine Neurological Exam Present: alert, oriented X3 <Abril Restrepo 05/13/19 10:34> H&P: Result - Impressions Abdominal CT 1. There appears represent the appendix may be slightly dilated. Appendicitis is not excluded. Consider repeating exam with IV and oral contrast for confirmation if clinically warranted. 2. Fluid-filled loops of small bowel with a few scattered air-fluid levels within both large and small bowel suggesting enterocolitis. 3. Right nephrolithiasis Operative Findings Acutely inflamed markedly indurated suppurative appendicitis with some purulent fluid. It was densely adherent into the right pelvis posterior to the terminal ileum. <Abril Restrepo 05/13/19 09:15> Assessment and Plan (1) Appendicitis, acute Current visit: Yes Status: Acute Qualifiers: Acute appendicitis type: unspecified acute appendicitis type Qualified Code(s): K35.80 - Unspecified acute appendicitis Category: Medical Code(s): K35.80 - Unspecified acute appendicitis (2) Chronic atrial fibrillation Current visit: Yes Status: Chronic Category: Medical Code(s): I48.2 - Chronic atrial fibrillation (3) Renal insufficiency Current visit: Yes Status: Chronic Category: Medical Code(s): N28.9 - Disorder of kidney and ureter, unspecified (4) Essential hypertension Current visit: No Status: Chronic Category: Medical Code(s): I10 - Essential (primary) hypertension (5) Pure hypercholesterolemia Current visit: No Status: Chronic Category: Medical Code(s): E78.00 - Pure hypercholesterolemia, unspecified <Abril Restrepo - 05/13/19 10:30> (1) Appendicitis, acute Current visit: Yes Status: Acute Qualifiers: Acute appendicitis type: unspecified acute appendicitis type Qualified Code(s): K35.80 - Unspecified acute appendicitis Category: Medical Code(s): K35.80 - Unspecified acute appendicitis (2) Chronic atrial fibrillation Current visit: Yes Status: Chronic Category: Medical Code(s): I48.2 - Chronic atrial fibrillation (3) Renal insufficiency Current visit: Yes Status: Chronic Category: Medical Code(s): N28.9 - Disorder of kidney and ureter, unspecified (4) Essential hypertension Current visit: No Status: Chronic Category: Medical Code(s): I10 - Essential (primary) hypertension (5) Pure hypercholesterolemia Current visit: No Status: Chronic Category: Medical Code(s): E78.00 - Pure hypercholesterolemia, unspecified <Carlton Quinteros - 05/13/19 13:36> - Assessment and plan all Dx Assessment and Plan for all problems:: Patient seen and examined. Concur with above assessment and plan. <Carlton Quinteros - 05/13/19 13:36> Dr. Riley feels the patient will need to be kept overnight for monitoring and antibiotics and can possibly did be discharged home tomorrow if he is stable and able to tolerate a diet. <Abril Restrepo - 05/13/19 10:34>
--- NOTE | 2019-05-14 08:38 | Progress Note ---
Internal Medicine - PN: Subj *Date: 05/14/19 *Time: 08:38 Exam Vital signs and Labs for Last 24 Hours: Temp Pulse Resp BP Pulse Ox 97.4 F L 82 18 170/80 H 92 L 05/14/19 04:00 05/14/19 04:00 05/14/19 04:00 05/14/19 05:48 05/14/19 04:00 I & O for Last 24 hours: Intake & Output 05/11/19 05/12/19 05/13/19 05/14/19 11:59 11:59 11:59 11:59 Intake Total 1648 / 1648 3660 / 3660 Output Total 1075 / 1075 2475 / 2475 Balance 573 / 573 1185 / 1185 Weight 144 lb 144 lb 5 oz Assessment and Plan (1) Appendicitis, acute Current visit: Yes Status: Acute Qualifiers: Acute appendicitis type: unspecified acute appendicitis type Qualified Code(s): K35.80 - Unspecified acute appendicitis Category: Medical Code(s): K35.80 - Unspecified acute appendicitis (2) Chronic atrial fibrillation Current visit: Yes Status: Chronic Category: Medical Code(s): I48.2 - Chronic atrial fibrillation (3) Renal insufficiency Current visit: Yes Status: Chronic Category: Medical Code(s): N28.9 - Disorder of kidney and ureter, unspecified (4) Essential hypertension Current visit: No Status: Chronic Category: Medical Code(s): I10 - Essential (primary) hypertension (5) Pure hypercholesterolemia Current visit: No Status: Chronic Category: Medical Code(s): E78.00 - Pure hypercholesterolemia, unspecified
--- NOTE | 2019-05-14 09:17 | Progress Note ---
Subjective Patient reports: feels better Exam Vital signs and Labs for Last 24 Hours: Temp Pulse Resp BP Pulse Ox 97.4 F L 82 18 170/80 H 92 L 05/14/19 04:00 05/14/19 04:00 05/14/19 04:00 05/14/19 05:48 05/14/19 04:00 I & O for Last 24 hours: Intake & Output 05/11/19 05/12/19 05/13/19 05/14/19 11:59 11:59 11:59 11:59 Intake Total 1648 / 1648 3660 / 3660 Output Total 1075 / 1075 2475 / 2475 Balance 573 / 573 1185 / 1185 Weight 144 lb 144 lb 5 oz - *Routine Abdominal Exam Present: soft Comments: Incisions clean Progress Note: A&P (1) Appendicitis, acute Status: Acute Current Visit: Yes (2) Chronic atrial fibrillation Status: Chronic Current Visit: Yes (3) Renal insufficiency Status: Chronic Current Visit: Yes (4) Essential hypertension Status: Chronic Current Visit: No (5) Pure hypercholesterolemia Status: Chronic Current Visit: No Assessment and Plan for All Diagnoses:: Okay for discharge from surgical standpoint pending lab results.
[2019-05-14 09:20] LABS: Basophils % 0.1 % (0.1-2.0); Eosinophils % 0.1 % (0.1-12.0); Hematocrit 46.6 % (42.0-52.0); Hemoglobin 15.1 g/dL (14.1-18.0); Lymphocytes % 5.5 % (10-50); Mean Corpuscular HGB Conc 32.3 g/dL (31.8-35.4); Mean Corpuscular Volume 96.2 fl (80-94); Mean Platelet Volume 7.8 fl (7.4-10.4); Monocytes # 0.8 K/mm3 (0.1-1.0); Monocytes % 4.3 % (1.7-9.3); Neutrophils # 16.6 K/mm3 (1.8-7.8); Platelet Count 210 K/mm3 (142-424); Red Blood Count 4.84 M/mm3 (4.60-6.20); Red Cell Distribution Width 13.5 % (11.5-17.5); White Blood Count 18.5 K/mm3 (4.8-10.8)
[2019-05-14 09:33] LABS: Albumin Level 3.2 gm/dL (3.4-5.0); Albumin/Globulin Ratio 0.7 (1.1-1.8); Bilirubin,Total 0.9 mg/dL (0.2-1.0); Calcium 9.1 mg/dL (8.5-10.1); Globulin 4.3 gm/dl (1.3-3.2); Total Protein,Serum 7.5 gm/dL (6.4-8.2)
[2019-05-14 10:13] LABS: Lymphocytes % 7 % (10-50); Monocytes % 6 % (2-9); Neutrophils % 87 % (42-76); RBC Morphology Normal; Total Cells Counted 100
--- NOTE | 2019-05-14 10:31 | Discharge Summary ---
General - General Admission date:: 05/13/19 Discharge date: 05/14/19 HPI HPI: Mr. Mclean is a 78 yo male with a history of chronic atrial fibrillation who presented to the ER with chills, fever, and RLQ abdominal pain. He had been in his usual state of health until yesterday evening when the shaking, chills, and fevers began while he was playing cards. He then had some right pelvic and right lower quadrant discomfort. He was evaluated in the ER and a CT scan was done showing a mildly distended appendix with periappendiceal stranding consistent with non-complicated acute appendicitis. Dr. Riley was consulted, saw the patient, and performed and emergent laparoscopic appendectomy. The patient seems to have tolerated the procedure well. He is currently eating Jello and states his abdominal pain is much better. Hospital Course Hospital Course: Patient was admitted to our hospital for acute appendicitis. Surgery was consulted. Please see surgery note for full details. Patient underwent emergent laparoscopic appendectomy and did well the following day. He tolerated soft diet. On the day of discharge, his CBC was still elevated as this could be from the residual inflammation. Patient is doing better clinically and we will f/u with him in office preferable on Thursday for trending his CBC. His BP was elevated during the course, so his lisinopril was increased to 10 mg upon discharge as well. Objective Vital signs: Temp Pulse Resp BP Pulse Ox 97.5 F L 92 H 16 151/83 H 94 L 05/14/19 10:06 05/14/19 10:06 05/14/19 10:06 05/14/19 10:06 05/14/19 10:06 - *Routine HEENT Exam Head: Present: normocephalic Eye: Present: EOMI, PERRL ENT: Present: mucous membranes moist - *Routine Neck Exam Present: supple - *Routine Respiratory Exam Present: CTA bilaterally - *Routine Cardiovascular Exam Present: RRR - *Routine Abdominal Exam Present: soft, normoactive bowel sounds. Absent: rebound - *Routine Extremities Exam Absent: cyanosis, clubbing, edema - *Routine Skin Exam Present: intact. Absent: cyanosis, erythema - *Routine Neurological Exam Present: alert, oriented X3 - Detailed Eye Exam Eyelids: Left normal inspection Results Labs on day of discharge: Labs from last 24 hours 05/14/19 05/14/19 09:00 09:00 WBC 18.5 H D RBC 4.84 Hgb 15.1 Hct 46.6 MCV 96.2 H MCH 31.1 MCHC 32.3 RDW 13.5 Plt Count 210 D MPV 7.8 Neut % (Auto) 90.0 H Lymph % (Auto) 5.5 L [place] % (Auto) 4.3 Eos % (Auto) 0.1 Baso % (Auto) 0.1 Neut # (Auto) 16.6 H Lymph # (Auto) 1.0 [place] # (Auto) 0.8 Eos # (Auto) 0.0 Baso # (Auto) 0.0 Total Counted 100 Neutrophils % (Manual) 87 H Lymphocytes % (Manual) 7 L Monocytes % (Manual) 6 Platelet Estimate Normal RBC Morphology Normal Sodium 142 Potassium 4.0 Chloride 105 Carbon Dioxide 25 Anion Gap 16.0 H BUN 22 H Creatinine 1.71 H Estimated Creat Clear 33 Estimated GFR 39 L Est GFR ( Amer) 47 L Glucose 119 H Calcium 9.1 Total Bilirubin 0.9 AST 14 L D ALT 13 D Alkaline Phosphatase 80 Total Protein 7.5 Albumin 3.2 L D Globulin 4.3 H Albumin/Globulin Ratio 0.7 L DS: Diagnosis - Discharge Diagnosis (1) Appendicitis, acute Status: Acute (2) Chronic atrial fibrillation Status: Chronic (3) Renal insufficiency Status: Chronic (4) Essential hypertension Status: Chronic (5) Pure hypercholesterolemia Status: Chronic Discharge Plan - Patient Discharge Instructions ACTIVITY: No heavy lifting DIET: advance to your usual diet Patient Instructions: DI for Appendicitis -- Adult, Kidney Failure, Atrial Fibrillation, Appendicitis, DI for Atrial Fibrillation, DI for Surgical Site Infection - Follow up Plan Follow up with: Adam Riley MD [Staff Physician] - 2 weeks Carlton Quinteros MD [Primary Care Provider] - 1 week Disposition: Home, Self-[facility] Medications: Home Medications Medication Instructions Recorded Confirmed Type Aspirin [Aspir 81] 81 mg PO DAILY 10/06/17 05/13/19 History Donepezil HCl [Aricept 10mg 10 mg PO HS 05/12/19 05/13/19 History tablet] Lisinopril [Lisinopril 5mg 5 mg PO DAILY 05/12/19 05/13/19 History Tablet] Oxybutynin Chloride [Oxybutynin 15 mg PO HS 05/12/19 05/13/19 History Chloride ER] RX: Pravastatin Sodium [Pravachol 40 mg PO HS 05/13/19 05/13/19 History 40mg Tablet] Hydrocod/Acet 5/325 mg [[place] 1 - 2 tab PO Q6HP PRN #21 tab 05/14/19 Rx 5/325mg tablet] RX: Lisinopril [Zestril 10mg 10 mg PO DAILY #30 tab 05/14/19 Rx Tab] Prescriptions/Medication Reconciliation: New Hydrocod/Acet 5/325 mg [[place] 5/325mg tablet] 1 - 2 tab PO Q6HP PRN #21 tab PRN Reason: Moderate Pain RX: Lisinopril [Zestril 10mg Tab] 10 mg PO DAILY #30 tab Continued Aspirin [Aspir 81] 81 mg PO DAILY Donepezil HCl [Aricept 10mg tablet] 10 mg PO HS RX: Pravastatin Sodium [Pravachol 40mg Tablet] 40 mg PO HS Oxybutynin Chloride [Oxybutynin Chloride ER] 15 mg PO HS Discontinued Lisinopril [Lisinopril 5mg Tablet] 5 mg PO DAILY - Problem Reconciliation Problems Reviewed?: Yes
== END 2019-05-14 11:55 | disposition home or self-care (01) ==
LOC: ER 22:55 → ICU 05-13 01:41 → INTOOBSV 05-13 02:05 → 2ND 05-13 16:52
PROVIDERS: ADMIT Family Medicine; ATTEND Family Medicine
CPT/HCPCS: 36415; 71010; 71045; 74176; 80048; 80053; 81001; 83605; 84484; 85007; 85025; 85610; 85651; 86140; 87040; 88304; 93005; 96365; 96367; 99285; G0378; J2405

== ENCOUNTER → 2019-11-18 12:59 | Outpatient (CLI) | payer MEDICARE, MEDICAID, SELFPAY | PROVIDERS: PCP Family Medicine; Visit Provider Internal Medicine Sleep Medicine | DX: R05 Cough (principal) ==

== ENCOUNTER → 2019-11-23 13:51 | Outpatient (CLI) | payer MEDICARE, MEDICAID, SELFPAY ==
--- NOTE | 2019-11-23 14:02 | CT_ITS ---
PROCEDURE: CT CHEST WO CON CLINICAL INDICATION: COUGH COMPARISON: No exams were available for comparison TECHNIQUE: Axial images obtained with sagittal and coronal reformats. All CT scans at the facility use one or more dose reduction, viz: automated exposure control, ma/kV adjustment per patient size (including targeted exams where dose is matched to indication, i.e. head), or iterative reconstruction technique. FINDINGS: HEART AND MEDIASTINAL STRUCTURES: There is atherosclerosis of coronary arteries and the thoracic aorta and great arch vessels. There is mediastinal lymphadenopathy. Precarinal lymph node 1.0 x 1.3 centimeters is noted and noted anterior to the right mainstem bronchus 1.3 x 1.8 centimeters is noted. Subcarinal lymphadenopathy 2.3 by 1.5 centimeters is noted. LUNGS AND PLEURAL SPACES: . lungs are emphysematous. There are irregular opacities in both extreme lung apices at the interface of the lungs and pleural surfaces possibly due to pleuroparenchymal scarring. In the right upper lobe a 1.6 x 2.4 centimeter soft tissue nodule is seen with soft tissue septae a extending to the adjacent pleural surface. Scar versus malignant neoplasm are the considerations. There are other scattered linear and interstitial densities in both lung johnson probably due to scarring. Calcified granulomas are seen in the left upper lobe. A 7 millimeter noncalcified pulmonary nodule is seen in the left lower lobe image 50 series 3. A 4 millimeter indeterminate pulmonary nodule is seen in the right lower image 56 series 3. Post inflammatory or neoplastic etiology for these nodules should be considered. BONY STRUCTURES: No acute bony abnormalities apparent. UPPER ABDOMEN: An indeterminate 4 millimeter hypodensity is seen in the liver dome image 63 series 3. Multiple calcified hepatic and splenic granulomas are noted. Nonspecific calcification in the pancreatic tail without a discrete mass is noted. A 3 millimeter calcification in the posterior cortex of the upper pole the right kidney is noted consistent with non-obstructing nephrolithiasis. Small hypodensities in the left kidney are likely cortical cysts. ADDITIONAL FINDINGS: No other significant abnormalities. IMPRESSION: Irregular soft tissue nodule in right upper lobe suspicious for a malignant neoplasm. Other irregular parenchymal densities at interface of lung and pleural surfaces in the apices are likely due to scarring. Indeterminate pulmonary nodules. No acute infiltrate. Lymphadenopathy as described. Coronary atherosclerosis. Nonspecific subcentimeter hypodensity in liver dome too small to definitively characterize.. Nonobstructing right renal calculus. Probable cortical cysts of left kidney Dictated by: Prashanth Hyatt 11/23/2019 14:51 Electronically signed by Prashanth Hyatt in [facility] 11/23/2019 14:51
== END ==
PROVIDERS: PCP Family Medicine; Visit Provider Internal Medicine Sleep Medicine
DX: R05 Cough (principal)
CPT/HCPCS: 71250

== ENCOUNTER → 2019-12-01 14:40 | Outpatient (CLI) | payer MEDICARE, MEDICAID, SELFPAY ==
--- NOTE | 2019-12-01 14:44 | CT_ITS ---
PROCEDURE: CT ABDOMEN PELVIS WO CON CLINICAL INDICATION: renal failure Benign prostatic hypertrophy, bladder neck contracture, renal failure, follow-up nephrolithiasis COMPARISON: 05/13/2019 TECHNIQUE: Axial images obtained with sagittal and coronal reformats. All CT scans at the facility use one or more dose reduction, viz: automated exposure control, ma/kV adjustment per patient size (including targeted exams where dose is matched to indication, i.e. head), or iterative reconstruction technique. FINDINGS: LOWER THORAX: There is a 6 mm noncalcified nodule in the left lower lobe posterior laterally unchanged. Coronary artery calcifications and aortic valve calcifications are present. ABDOMEN & PELVIS: The liver, gallbladder, spleen, adrenal glands, and pancreas have an unremarkable unenhanced appearance. There is a 4 mm nonobstructing stone in the upper pole of the right kidney. A 2 cm cyst is present within the left kidney medially and posteriorly. No ureteral calculi. No hydronephrosis. There are fluid-filled loops of small bowel which are nonspecific and nondistended. There is mild thickening of the urinary bladder wall. Coarse calcification is present within the central aspect of the prostate. Degenerative changes are present in the spine. Calcification involves the aortoiliac vessels. IMPRESSION: 1. No change nonobstructing right nephrolithiasis. 2. Mild thickening of the urinary bladder not significantly changed. Coarse calcification centrally within the prostate. 3. Nonspecific nonacute findings as described above. Dictated by: Reyes Ruelas MD 12/02/2019 10:40 Electronically signed by Reyes Ruelas MD in [facility] 12/02/2019 10:40
[2019-12-01 17:46] LABS: Anion Gap 12.3 mEq/L (5-15); Blood Urea Nitrogen 32 mg/dl (9-20); Calcium 9.5 mg/dl (8.4-10.2); Carbon Dioxide 27 mmol/L (22.0-30.0); Chloride 103 mmol/L (98-107); Estimated Glomerular Filt Rate 32 ml/min (>60); GFR (African American) 39 ML/MIN (>60); Glucose 117 mg/dl (74-100); Potassium 4.3 mmoL/L (3.5-5.1); Sodium 138 mmol/L (136-145)
== END ==
PROVIDERS: PCP Family Medicine; Visit Provider Urology
DX: N19 Unspecified kidney failure (principal)
CPT/HCPCS: 36415; 74176; 80048

== ENCOUNTER → 2019-12-09 09:46 | Outpatient (CLI) | payer MEDICARE, MEDICAID, SELFPAY | PROVIDERS: PCP Internal Medicine Adolescent Medicine; Visit Provider Internal Medicine Sleep Medicine | DX: R05 Cough (principal); J44.9 Chronic obstructive pulmonary disease, unspecified | CPT/HCPCS: 94060 ==

== ENCOUNTER → 2020-03-30 08:34 | Outpatient (CLI) | payer MEDICARE, MEDICAID, SELFPAY ==
[2020-03-30 08:43] LABS: Microscopic, Urine URINE MICROSCOPIC (MICROSCOPIC)
[2020-03-30 09:37] LABS: Appearance,Urine CLEAR (Clear); Bilirubin,Urine Negative (Negative); Blood, Urine Negative (Negative); Color,Urine YELLOW (Yellow); Glucose,Urine (UA) Negative (Negative); Ketones,Urine Negative (Negative); Leukocyte Esterase,Urine TRACE (Negative); Nitrate,Urine Negative (Negative); Protein,Urine TRACE (Negative); Urobilinogen,Urine 0.2 EU/dl (0.2)
[2020-03-30 09:47] LABS: Basophils % 0.5 % (0.1-2.0); Eosinophils # 0.3 K/mm3 (0.0-0.4); Eosinophils % 4.2 % (0.1-12.0); Hematocrit 41.9 % (42.0-52.0); Hemoglobin 13.7 g/dL (14.1-18.0); Lymphocytes # 1.1 K/mm3 (0.7-4.5); Lymphocytes % 15.2 % (10-50); Mean Corpuscular HGB Conc 32.7 g/dL (31.8-35.4); Mean Corpuscular Hemoglobin 31.4 pg (27.0-31.2); Mean Corpuscular Volume 95.9 fl (80-94); Mean Platelet Volume 8.7 fl (7.4-10.4); Monocytes # 0.4 K/mm3 (0.1-1.0); Monocytes % 6.1 % (1.7-9.3); Neutrophils # 5.3 K/mm3 (1.8-7.8); Neutrophils % 74.1 % (37.0-80.0); Platelet Count 172 K/mm3 (142-424); Red Blood Count 4.37 M/mm3 (4.60-6.20); Red Cell Distribution Width 13.6 % (11.5-17.5); White Blood Count 7.1 K/mm3 (4.8-10.8)
[2020-03-30 09:54] LABS: Bacteria,Urine 2+ /lpf
[2020-03-30 11:03] LABS: Albumin Level 4.5 g/dl (3.5-5.0); Anion Gap 12.5 mEq/L (5-15); Blood Urea Nitrogen 30 mg/dl (9-20); Calcium 9.6 mg/dl (8.4-10.2); Carbon Dioxide 27 mmol/L (22.0-30.0); Chloride 101 mmol/L (98-107); Estimated Glomerular Filt Rate 28 ml/min (>60); GFR (African American) 33 ML/MIN (>60); Glucose 97 mg/dl (74-100); Phosphorous 3.6 mg/dl (2.5-4.5); Potassium 4.5 mmoL/L (3.5-5.1); Sodium 136 mmol/L (136-145)
[2020-03-30 11:14] LABS: Intact Parathyroid Hormone 76.6 pg/mL (7.5-53.5)
[2020-03-30 11:18] LABS: 25-OH Vitamin D, Total 46.2 ng/mL (30-100)
[2020-03-30 13:55] LABS: Creatinine,Urine Random 161 mg/dL (Not Estab.)
== END ==
PROVIDERS: Visit Provider Internal Medicine Nephrology
DX: N17.9 Acute kidney failure, unspecified (principal); R80.9 Proteinuria, unspecified; Z79.899 Other long term (current) drug therapy; N18.3 Chronic kidney disease, stage 3 (moderate)
CPT/HCPCS: 36415; 80069; 81001; 82306; 82570; 83970; 84155; 85025; 87086; 87088; 87186

== ENCOUNTER → 2020-04-05 12:37 | Outpatient (POV) | payer MEDICARE, MEDICAID, SELFPAY | PROVIDERS: Visit Provider Internal Medicine Nephrology | DX: Z00.00 Encounter for general adult medical examination without abnormal findings (principal) ==

== ENCOUNTER → 2020-04-30 14:22 | Outpatient (CLI) | payer MEDICARE, MEDICAID, SELFPAY ==
--- NOTE | 2020-04-30 14:26 | US_ITS ---
PROCEDURE: US KIDNEY CLINICAL INDICATION: CKD STAGE 3 COMPARISON: US Renal Comp from 08/27/2019 FINDINGS: The right kidney is [id number]. There is diffuse cortical thinning. There is no demonstrated renal mass or cyst. No hydronephrosis or perinephric fluid collection is evident. The left kidney is [id number]. There is diffuse cortical thinning. Multiple small cysts are seen on the left kidney. No hydronephrosis, solid renal mass or perinephric fluid collection is evident. Incidentally noted bilateral pleural effusions. IMPRESSION: 1. Diffuse bilateral renal cortical thinning. 2. Multiple small left renal cortical cysts are seen. 3. Bilateral pleural effusions. Dictated by: Ashish Ugarte 04/30/2020 17:51 Electronically signed by Ashish Ugarte in [facility] 04/30/2020 17:51
== END ==
PROVIDERS: PCP Internal Medicine Adolescent Medicine; Visit Provider Internal Medicine Nephrology
DX: N18.3 Chronic kidney disease, stage 3 (moderate) (principal)
CPT/HCPCS: 76770

== ENCOUNTER → 2020-06-08 09:43 | Outpatient (CLI) | payer MEDICARE, MEDICAID, SELFPAY ==
--- NOTE | 2020-06-08 09:46 | US_ITS ---
PROCEDURE: US KIDNEY CLINICAL INDICATION: CHRONIC KIDNEY DISEASE STAGE 3 COMPARISON: US US KIDNEY from 04/30/2020 FINDINGS: Right kidney is 8.2 x 4 x 5 cm. The left kidney is 8.8 x 4 by 4 cm. There is bilateral renal cortical thinning. No hydronephrosis renal mass or perinephric fluid. There are several cyst along the lower pole of the left kidney measuring up to 17 mm IMPRESSION: 1. No hydronephrosis. 2. Bilateral renal cortical scarring. 3. Left lower pole renal cysts Dictated by: Reyes Ruelas MD 06/08/2020 15:34 Reyes Ruelas MD in [facility] 06/08/2020 15:34
[2020-06-08 10:46] LABS: Microscopic, Urine URINE MICROSCOPIC (MICROSCOPIC)
[2020-06-08 11:22] LABS: Appearance,Urine CLEAR (Clear); Bilirubin,Urine Negative (Negative); Blood, Urine Negative (Negative); Color,Urine YELLOW (Yellow); Glucose,Urine (UA) Negative (Negative); Ketones,Urine Negative (Negative); Leukocyte Esterase,Urine Negative (Negative); Nitrate,Urine Negative (Negative); Protein,Urine Negative (Negative)
[2020-06-08 11:25] LABS: Basophils % 0.5 % (0.1-2.0); Eosinophils # 0.3 K/mm3 (0.0-0.4); Eosinophils % 3.3 % (0.1-12.0); Hematocrit 40.4 % (42.0-52.0); Hemoglobin 13.9 g/dL (14.1-18.0); Lymphocytes # 1.1 K/mm3 (0.7-4.5); Lymphocytes % 13.4 % (10-50); Mean Corpuscular HGB Conc 34.4 g/dL (31.8-35.4); Mean Corpuscular Hemoglobin 32.1 pg (27.0-31.2); Mean Corpuscular Volume 93.3 fl (80-94); Mean Platelet Volume 8.6 fl (7.4-10.4); Monocytes # 0.5 K/mm3 (0.1-1.0); Monocytes % 6.4 % (1.7-9.3); Neutrophils # 6.2 K/mm3 (1.8-7.8); Neutrophils % 76.5 % (37.0-80.0); Platelet Count 196 K/mm3 (142-424); Red Blood Count 4.33 M/mm3 (4.60-6.20); Red Cell Distribution Width 13.1 % (11.5-17.5); White Blood Count 8.1 K/mm3 (4.8-10.8)
[2020-06-08 11:32] LABS: Creatinine,Urine Random 150 mg/dL (Not Estab.)
[2020-06-08 11:35] LABS: Microalbumin/Creatinine Ratio 19.8
[2020-06-08 11:36] LABS: RBC,Urine Occasional #/hpf (0-3); Squamous Epithelial Cell,Urine Occasional #/hpf (0-5)
[2020-06-08 12:54] LABS: Albumin Level 4.1 g/dl (3.5-5.0); Anion Gap 13.8 mEq/L (5-15); Blood Urea Nitrogen 34 mg/dl (9-20); Calcium 9.4 mg/dl (8.4-10.2); Carbon Dioxide 27 mmol/L (22.0-30.0); Chloride 104 mmol/L (98-107); Estimated Glomerular Filt Rate 21 ml/min (>60); GFR (African American) 26 ML/MIN (>60); Glucose 95 mg/dl (74-100); Phosphorous 3.7 mg/dl (2.5-4.5); Potassium 4.8 mmoL/L (3.5-5.1); Sodium 140 mmol/L (136-145)
== END ==
PROVIDERS: PCP Internal Medicine Adolescent Medicine; Visit Provider Internal Medicine Nephrology
DX: N18.3 Chronic kidney disease, stage 3 (moderate) (principal)
CPT/HCPCS: 36415; 76770; 80069; 81001; 82043; 82570; 84155; 85025

== ENCOUNTER → 2020-06-18 13:11 | Outpatient (POV) | payer MEDICARE, MEDICAID, SELFPAY | PROVIDERS: Visit Provider Internal Medicine Nephrology | DX: Z00.00 Encounter for general adult medical examination without abnormal findings (principal) ==

== ENCOUNTER → 2020-06-21 11:02 | Outpatient (CLI) | payer MEDICARE, MEDICAID, SELFPAY | PROVIDERS: PCP Family Medicine; Visit Provider Internal Medicine Cardiovascular Disease | DX: R94.31 Abnormal electrocardiogram [ECG] [EKG] (principal); J44.9 Chronic obstructive pulmonary disease, unspecified; I48.20 Chronic atrial fibrillation, unspecified; E78.00 Pure hypercholesterolemia, unspecified; N28.9 Disorder of kidney and ureter, unspecified; I10 Essential (primary) hypertension; Z86.73 Personal history of transient ischemic attack (TIA), and cerebral infarction without residual deficits | CPT/HCPCS: 93225 ==

== ENCOUNTER → 2020-08-02 10:00 | Outpatient (CLI) | payer MEDICARE, MEDICAID, SELFPAY ==
[2020-08-02 11:16] LABS: Chloride 101 mmol/L (98-107)
[2020-08-02 11:17] LABS: Potassium 3.9 mmoL/L (3.5-5.1); Sodium 140 mmol/L (136-145)
[2020-08-02 11:20] LABS: Anion Gap 12.9 mEq/L (5-15); Blood Urea Nitrogen 21 mg/dl (9-20); Calcium 9.2 mg/dl (8.4-10.2); Carbon Dioxide 30 mmol/L (22.0-30.0); Estimated Glomerular Filt Rate 29 ml/min (>60); GFR (African American) 35 ML/MIN (>60); Glucose 90 mg/dl (74-100)
== END ==
PROVIDERS: Visit Provider Internal Medicine Cardiovascular Disease
DX: E78.00 Pure hypercholesterolemia, unspecified (principal); I10 Essential (primary) hypertension; I48.20 Chronic atrial fibrillation, unspecified; J44.9 Chronic obstructive pulmonary disease, unspecified; N28.9 Disorder of kidney and ureter, unspecified; Z86.73 Personal history of transient ischemic attack (TIA), and cerebral infarction without residual deficits
CPT/HCPCS: 36415; 80048

== ENCOUNTER → 2020-09-14 11:57 | Outpatient (CLI) | payer MEDICARE, MEDICAID, SELFPAY | PROVIDERS: PCP Family Medicine; Visit Provider Internal Medicine Cardiovascular Disease | DX: R42 Dizziness and giddiness (principal); I48.20 Chronic atrial fibrillation, unspecified; I10 Essential (primary) hypertension; R00.1 Bradycardia, unspecified; E78.00 Pure hypercholesterolemia, unspecified; N18.9 Chronic kidney disease, unspecified | CPT/HCPCS: 93225; 93226 ==

== ENCOUNTER → 2020-09-25 14:55 | Outpatient (CLI) | payer MEDICARE, MEDICAID, SELFPAY ==
[2020-09-25 15:35] LABS: Basophils # 0.1 K/mm3 (0-0.2); Basophils % 0.9 % (0.1-2.0); Eosinophils # 0.2 K/mm3 (0.0-0.4); Eosinophils % 2.4 % (0.1-12.0); Hematocrit 44.3 % (42.0-52.0); Hemoglobin 14.1 g/dL (14.1-18.0); Lymphocytes # 1.1 K/mm3 (0.7-4.5); Lymphocytes % 16.4 % (10-50); Mean Corpuscular HGB Conc 31.9 g/dL (31.8-35.4); Mean Corpuscular Hemoglobin 31.2 pg (27.0-31.2); Mean Corpuscular Volume 97.8 fl (80-94); Mean Platelet Volume 8.6 fl (7.4-10.4); Monocytes # 0.5 K/mm3 (0.1-1.0); Monocytes % 7.3 % (1.7-9.3); Neutrophils # 4.7 K/mm3 (1.8-7.8); Neutrophils % 72.9 % (37.0-80.0); Platelet Count 206 K/mm3 (142-424); Red Blood Count 4.53 M/mm3 (4.60-6.20); White Blood Count 6.4 K/mm3 (4.8-10.8)
[2020-09-25 16:25] LABS: Chloride 100 mmol/L (98-107); Sodium 141 mmol/L (136-145)
[2020-09-25 16:28] LABS: Blood Urea Nitrogen 22 mg/dl (9-20); Carbon Dioxide 31 mmol/L (22.0-30.0); Estimated Glomerular Filt Rate 26 ml/min (>60); GFR (African American) 32 ML/MIN (>60)
[2020-09-25 16:29] LABS: Calcium 9.3 mg/dl (8.4-10.2); Glucose 98 mg/dl (74-100)
[2020-09-25 16:49] LABS: Coronavirus 19 IgG Antibody Negative (Negative); Coronavirus 19 IgM Antibody Negative (Negative)
== END ==
PROVIDERS: Visit Provider Internal Medicine
DX: Z01.818 Encounter for other preprocedural examination (principal); Z03.818 Encounter for observation for suspected exposure to other biological agents ruled out; I49.5 Sick sinus syndrome; R00.1 Bradycardia, unspecified; R94.31 Abnormal electrocardiogram [ECG] [EKG]
CPT/HCPCS: 36415; 80048; 85025; 86328

== ENCOUNTER 2020-09-26 09:46 | Day surgery (SDC) | payer MEDICARE, MEDICAID, SELFPAY ==
[2020-09-26] VITALS (25 sets, daily range): BP systolic 90–190; BP diastolic 43–99; PULSE 69–91; RESP 16–20; TEMP 35.8–36.8; O2SAT 94–99; BMI 21.4
--- NOTE | 2020-09-26 07:07 | IR_ITS ---
APPROVED REPORT Patient Location: Outpatient Nuclear Medicine Pet Ct Technologist: PANCHO Kelly RT (R) PROCEDURES 1. Pocket formation for Permanent Pacemaker Placement. 2. Placement of an atrial sensing and pacing coil into the right atrial appendage. 3. Placement of a ventricular sensing and pacing coil in the right ventricular apex. 4. Permanent Pacemaker Placement. INDICATION Symptomatic Bradycardia Informed consent was obtained prior to the procedure. COMPLICATIONS NONE Estimated Blood Loss: LESS THAN 10 ML TECHNIQUE 1% Lidocaine with epinephrine used to anesthetized the left anterior aspect of the chest. Scalpel was used to make the initial cutaneous incision while electrocautery was used to dissect down tinto the fascia. The fascia was lifted off the pectoralis muscle and digitally manipulated creating a pocket for the pacemaker. The patient was then placed in Trendelenburg position and the subclavian vein was accessed twice via the Selinger technique, there are two wires in the vein. A 6 Welsh sheath was placed under fluoroscopic guidance into the subclavian vein over one of the wires while keeping the other wire in place within the subclavian vein. The dilator was removed from the sheath. Using fluoroscopic guidance, the ventricular lead was placed into the right ventricular apex, screwed and secured into place. Electronic interrogation proved acceptable thresholds and voltage within the lead. Using 3-0 silk, the ventricular lead was then secured into place. Lead was secured to the facia using the 3-0 silk. Following this, the sheath was pealed away. An additional 6 Welsh fresh sheath and dilator was placed over the existing wire. Using fluoroscopic guidance, the atrial lead was the placed into the right atrial appendage and screwed and secured in place. Electrical interrogation demonstrated acceptable thresholds and voltage number. The atrial lead was then secured into place using 3-0 silk. 1 gram of Ancef was used to flush the pocket. Following the pacemaker generator being secured to the fascia and in place, Monocryl was used to close the subcutaneous layers while steven were used to close the cutaneous layer. A pressure dressing was placed and the patient was transferred to the postop holding area in stable condition for postoperative care. INTERROGATION Generator Model number: [employer] JOSE DANIEL BELTRÁN IS-! L311 Generator Serial number: [id number] Atrial lead model number: Ingevity +IS-1 Bi Positive Fix RA/RV 45 cm 7840 Atrial lead serial number: [id number] P-wave: 4.0 mV Impedence: Threshold: Afib Right Ventricular lead model number: Ingevity +IS-1 Bi Positive Fix RA/RV 52 cm 7841 Right Ventricular lead serial number: [id number] R-wave: 16.0 mV Impedence: 628 Ohms Threshold: 0.4V@0.4ms Pacing Parameters: Mode: DDDR Base/Max Track: 60bpm/130bpm No Diaphragmatic stimulation at 10 volts. IMPRESSION 1. Successful Pocket formation for Permanent Pacemaker Placement. 2. Successful Placement of an atrial sensing and pacing coil into the right atrial appendage. 3. Successful Placement of a ventricular sensing and pacing coil in the right ventricular apex. 4. Successful Permanent Pacemaker Placement. PLAN 1. Post Op Wound Care Electronically signed by : Lemuel Almonte, 09/26/2020 15:42:18
--- NOTE | 2020-09-26 13:40 | P.PN_ITS ---
[facility] Anesthesia Checklist - Patient Identification Patient Identification: Arm Band - Structural Data Admitted From: Home Planned Operative Procedure/s: Dual chamber pacemaker placement Consent for Planned Operative Procedure(s) Verified: Yes Verified Documents: Surgical Consent, History and Physical - NPO Status Verified Time NPO: 00:00 - Chart Verification Results Verified: CBC, BMP - Additional verifications Anesthesia Reactions: No Hx Blood Transfusions: No Blood Transfusion Reaction: Yes - Airway Assessment C-Spine Mobility Assessed: Yes (Limited neck ROM, MP 2) TMJ Mobility Assessed: Yes Dentition: Edentulous - Neurological Assessment Level of Consciousness: Awake, Alert, Appropriate Hx Seizures: No - Anesthesia Plan Anesthesia Risk discussed: Yes Anesthesia Plan: Not verified due to Patient Condition ASA Class: IV Anesthesia Type: MAC [facility] History I have reviewed the patient's past medical history: Yes Medical History: Reports:: Atrial Fibrillation, Cancer, Chronic Obstructive Pulmonary Disease (COPD), Cerebrovascular Accident, Hyperlipidemia, Hypertension, MRSA, Renal Disease, Seizures, Transient Ischemic Attacks (TIA) Denies:: Diabetes Mellitus Type 1, Diabetes Mellitus Type 2, Internal Pacemaker *Have you ever received a pneumonia vaccine?: No *Have you received a flu vaccine this season?: No Other Medical History: Reports: Blood Transfusion Reaction, Cataracts Anesthesia experience/problems:: None Laterality Cases: Right: Other Other Surgeries: Yes: Appendectomy, Cardiac Catheterization, Colonoscopy, Hernia Repair, Other. No: Pacemaker Amputation: No Fractures: No - *Social History Last grade of school completed: 9th or 10th Smoking Status: Current every day smoker Tobacco Type: cigarettes # Packs/Day (cigarettes): 1 #Yrs smoked (if former smoker): 50 Alcohol Intake: never Alcohol Intake Frequency:: other Substance Use Type: denies use *Occupational Status:: retired Housing: house Household Members: spouse *Travel in the last 8 weeks: Inside the [facility] Family Hx:: Cancer
--- NOTE | 2020-09-26 14:31 | XR_ITS ---
PROCEDURE: XR CHEST PORTABLE CLINICAL HISTORY: Confirm pacemaker/AID placement COMPARISON: DX CXR2V XR chest 2V from 12/07/2017 CR XR CHEST PORTABLE from 08/26/2019 DX CR Chest 2 Vws from 08/26/[address] CHEST WO CON from 11/23/2019 FINDINGS: Bipolar pacemaker has been placed from left subclavian approach. Right atrial and right ventricular leads are present and appear to be in good position on the AP view of the chest. There is no evidence of pneumothorax. Surgical clips are present in the infraclavicular region. Lungs are clear. Borderline cardiomegaly without failure. No acute bony abnormalities. IMPRESSION: Status post pacemaker placement as described above Dictated by: Reyes Ruelas MD 09/26/2020 15:19 Reyes Ruelas MD in [place] 09/26/2020 15:19
--- NOTE | 2020-09-26 15:34 | SUR.PHASEII ---
PT TO STAY OVERNIGHT OUTPT FOR OBSERVATION PER MD. PT TO BE DC'D TOMORROW MORNING AT APPROXIMATELY 0800. NURSE ATTENDING UNDERSTANDS ALL INSTRUCTIONS. PT STABLE
--- NOTE | 2020-09-26 19:51 | PC.NURSE ---
Upon entry to room this nurse noticed patients dressing site was bleeding. Dr. Almonte notified.
--- NOTE | 2020-09-26 20:05 | PC.NURSE ---
Per Dr. Almonte change dressing, apply neosporin and monitor.
--- NOTE | 2020-09-26 23:26 | PC.NURSE ---
Patient pacemaker site is swollen and bruised. Dressing is intact with no bleeding at this moment. Patient has been a little restless this evening. Gown and pillowcase changed.
[2020-09-27] VITALS: BP 177/91; PULSE 78; RESP 18; TEMP 36.9; O2SAT 95
--- NOTE | 2020-09-27 01:59 | PC.NURSE ---
Patient continues to be restless in the bed. Pacemaker site bleeding has decreased to a minimum. Swelling and bruising noted.
[2020-09-27 04:00] VITALS: BP 183/94; PULSE 87; RESP 18; TEMP 36.7; O2SAT 96
[2020-09-27 05:06] VITALS: BMI 20.6
--- NOTE | 2020-09-27 05:39 | PC.NURSE ---
Dressing to pacemaker changed. No signs or symptoms of distress noted. Left upper chest area is bruised around incision and down upper left arm from bleeding from incision earlier in the shift.
--- NOTE | 2020-09-27 06:54 | PC.NURSE ---
Spoke with Dr. Almonte regarding patient's hematoma over his pacemaker site. States patient does not need the sling, order a cbc, and patient should still be fine to go home.
[2020-09-27 07:29] LABS: Basophils % 0.1 % (0.1-2.0); Eosinophils % 0.2 % (0.1-12.0); Hematocrit 35.3 % (42.0-52.0); Hemoglobin 11.7 g/dL (14.1-18.0); Lymphocytes # 0.8 K/mm3 (0.7-4.5); Lymphocytes % 6.1 % (10-50); Mean Corpuscular HGB Conc 33.1 g/dL (31.8-35.4); Mean Corpuscular Volume 93.9 fl (80-94); Mean Platelet Volume 8.8 fl (7.4-10.4); Monocytes # 0.7 K/mm3 (0.1-1.0); Monocytes % 5.5 % (1.7-9.3); Neutrophils # 11.6 K/mm3 (1.8-7.8); Neutrophils % 88.1 % (37.0-80.0); Platelet Count 185 K/mm3 (142-424); Red Blood Count 3.76 M/mm3 (4.60-6.20); Red Cell Distribution Width 13.7 % (11.5-17.5); White Blood Count 13.2 K/mm3 (4.8-10.8)
[2020-09-27 07:30] LABS: MANUAL DIFFERENTIAL MANUAL DIFFERENTIAL (MANUAL DIFF)
[2020-09-27 07:38] VITALS: PULSE 100; O2SAT 95
[2020-09-27 07:42] LABS: Lymphocytes % 10 % (10-50); Monocytes % 2 % (2-9); Neutrophils % 88 % (42-76); Platelet Estimate Normal; RBC Morphology Normal; Total Cells Counted 100
--- NOTE | 2020-09-27 07:49 | PC.NURSE ---
Dr. Quinteros @ bedside at this time to assess Pacemaker site.
--- NOTE | 2020-09-27 07:52 | PC.NURSE ---
Called pt's daughter and made aware that pt will be ready for DC this AM when she is available to come and get pt.
[2020-09-27 08:00] VITALS: BP 198/104; PULSE 80; RESP 20; TEMP 36.8; O2SAT 97
[2020-09-27 09:00] VITALS: BP 165/87; PULSE 99; RESP 18; O2SAT 95
== END 2020-09-27 09:20 | disposition home or self-care (01) ==
LOC: CATHLAB 09:47 → 2ND 15:50
PROVIDERS: PCP Family Medicine; Visit Provider Internal Medicine
DX: E78.00 Pure hypercholesterolemia, unspecified (principal); I10 Essential (primary) hypertension; I48.20 Chronic atrial fibrillation, unspecified; J44.9 Chronic obstructive pulmonary disease, unspecified; N28.9 Disorder of kidney and ureter, unspecified; R94.31 Abnormal electrocardiogram [ECG] [EKG]; Z86.73 Personal history of transient ischemic attack (TIA), and cerebral infarction without residual deficits; I49.5 Sick sinus syndrome
CPT/HCPCS: 33208; 36415; 71045; 85007; 85025; C1785; C1898

== ENCOUNTER 2020-10-03 11:01 | Inpatient (IN) | payer MEDICARE, MEDICAID, SELFPAY ==
[2020-10-03] VITALS (21 sets, daily range): BP systolic 108–209; BP diastolic 58–115; PULSE 70–102; RESP 16–20; TEMP 36.3–37.3; O2SAT 90–100; BMI 22.8
--- NOTE | 2020-10-03 11:15 | PC.NURSE ---
Cardiology at bedside
--- NOTE | 2020-10-03 11:25 | PC.NURSE ---
rad notified of orders on pt
--- NOTE | 2020-10-03 11:27 | PC.NURSE ---
joselyn florez from cardiology speaking with ER MD at this time after assessing pt, states she will contact dr. valentine about pt.
--- NOTE | 2020-10-03 11:28 | XR_ITS ---
PROCEDURE: XR CHEST PORTABLE semi upright chest CLINICAL HISTORY: fall, swelling to L chest COMPARISON: CR XR CHEST PORTABLE from 08/26/2019 DX CR Chest 2 Vws from 08/26/[address] CHEST WO CON from 11/23/2019 CR XR CHEST PORTABLE from 09/26/2020 FINDINGS: The cardiomediastinal silhouette and pulmonary vascularity are within normal limits. The left sided infraclavicular pacemaker again noted with dual chamber electrodes both in good position. Metallic sutures are still seen in place projecting just below the left clavicle. However there is overall increased density of the soft tissues about the clavicle and superior to the pacemaker device Possibly representing postsurgical swelling or possibly contusion from the recent fall. IMPRESSION: Mild diffuse soft tissue prominence left upper chest and supraclavicular region, no definite acute pulmonary pathology noted Dictated by: Dr. Dale Gonzalez MD 10/03/2020 13:19 Dr. Dale Gonzalez MD in [place] 10/03/2020 13:19
--- NOTE | 2020-10-03 11:28 | CT_ITS ---
PROCEDURE: CT CERVICAL SPINE WO CON CLINICAL INDICATION: fall COMPARISON: CT CT CERVICAL SPINE WO CON from 08/25/2019 TECHNIQUE: Axial images obtained with sagittal and coronal reformats. All CT scans at the facility use one or more dose reduction, viz: automated exposure control, ma/kV adjustment per patient size (including targeted exams where dose is matched to indication, i.e. head), or iterative reconstruction technique. Axial spiral CT scanning performed of the cervical spine beginning at the base of the skull and continuing to the upper T-spine. 3-D multiplanar reconstruction with 3-D manipulation of volumetric data set in image rendering was completed by the radiologist and/or technologist with the supervision of the radiologist on independent workstation. FINDINGS: No fracture nor subluxation is evident. Normal prevertebral soft tissues. C1 through C7 appear intact. There is mild multilevel degenerate changes similar to the previous study. There is generalized osteopenia. There is mild arthritic change of the atlantoaxial joint with spurring of the tip of the odontoid. The spinal canal is normal in size throughout. There is moderate neural foraminal narrowing on right side the C4-5 level and C6-7 level secondary to degenerate change. IMPRESSION: Cervical spine intact with no fracture nor subluxation. Mild multilevel degenerate changes as described above Dictated by: Dr. Dale Gonzalez MD 10/03/2020 12:49 Dr. Dale Gonzalez MD in [place] 10/03/2020 12:49
--- NOTE | 2020-10-03 11:28 | CT_ITS ---
PROCEDURE: CT HEAD/BRAIN WO CON CLINICAL INDICATION: fall COMPARISON: CT CT Head WO from 08/27/2019 TECHNIQUE: Axial images obtained. All CT scans at the facility use one or more dose reduction, viz: automated exposure control, ma/kV adjustment per patient size (including targeted exams where dose is matched to indication, i.e. head), or iterative reconstruction technique. FINDINGS: No midline shift, mass effect, intracranial hemorrhage, hydrocephalus, or extra-axial fluid collection is evident. The basilar cisterns are prominent. The sylvian fissures and cortical sulci are prominent. There are mild atrophic changes of the cerebellar hemispheres as well. There is mild diffuse ventriculomegaly. There is a tiny old lacunar infarct right caudate nucleus. There are mild bilateral periventricular hypodensities consistent with chronic ischemic white matter changes. The calvarium has an unremarkable appearance. No mastoid effusion. No sinus air-fluid level. IMPRESSION: Findings of moderate cortical and mild cerebellar atrophy and chronic ischemic white matter changes, no acute intracranial pathology noted Dictated by: Dr. Dale Gonzalez MD 10/03/2020 12:53 Dr. Dale Gonzalez MD in [place] 10/03/2020 12:53
--- NOTE | 2020-10-03 11:28 | XR_ITS ---
PROCEDURE: XR HIP LT 2-3V W/PELVIS CLINICAL INDICATION: fall, hip pain COMPARISON: No exams were available for comparison FINDINGS: No fracture or dislocation is evident. No significant degenerative change. No lytic or blastic change. Unremarkable soft tissues. IMPRESSION: No acute findings. Dictated by: Dr. Dale Gonzalez MD 10/03/2020 13:20 Dr. Dale Gonzalez MD in [facility] 10/03/2020 13:20
--- NOTE | 2020-10-03 11:31 | [facility].EDGENADL ---
ED Disposition Clinical Impression: Anemia requiring transfusions Hematoma, chest wall Qualifiers: Encounter type: initial encounter Laterality: left Qualified Code(s): S20.212A - Contusion of left front wall of thorax, initial encounter Disposition: Admitted as Observation Condition on Discharge: Fair Additional Instructions: HOLD ELIQUIS for 5 days Follow up with Cardiology (Dr. Almonte) on October 10, 2020 at 10:30 AM Leaving stables in place until follow up appointment. Referrals: PCP,No [Non-Staff] - Time of Disposition: 16:15 - Critical Care Critical Care Time: No Attestation: On 10/03/20, the high probability of a clinically significant, sudden or life threatening deterioration of the following system(s) required my full and direct attention, intervention and personal management. The time I documented below is in addition to time spent performing reported procedures but includes the following listed in this critical care notation. Medical Decision Making - Medical Records Medical records reviewed: Yes: I reviewed the patient's medical records. MR Comment: This is a 80-year-old male who has had a recent pacemaker placed and he had a fall this morning and the family noticed that there was bleeding from the site of one of the steven; he is in no distress at this time and is also being reviewed and seen by cardiology. Have reviewed the patient's labs and these are the critical findings his hemoglobin which was 11.7 and on 1224 has dropped to 7.8 today's x-ray shows contusion of the left chest however CT of the chest shows large hematoma of dimensions 9.4 cm x 5.5 cm x 4.7 cm overlying the dialysis muscle electrodes are going through the hematoma 19 test is negative total bilirubin is elevated at 2.5 audiology as well as Dr. Rouse and it has been decided that the patient is to be admitted for observation and with transfusion plans for 1 unit of blood - Lyle Inquiry Pt receiving controlled substance: No Lyle was queried for this patient: No Vital Signs: 10/03/20 11:02 10/03/20 11:29 10/03/20 12:07 Temperature 97.8 F Temperature Source Oral Pulse Rate [Apical] 75 70 77 Respiratory Rate 16 Blood Pressure [Right Arm] 130/78 187/80 H 177/79 H Blood Pressure Mean [Right Arm] 95 115 111 Blood Pressure Source [Right Arm] Automatic Cuff Automatic Cuff Automatic Cuff Blood Pressure Position [Right Arm] Supine Sitting Sitting 02 Sat by Pulse Oximetry 96 100 98 Oxygen Delivery Method Nasal Cannula Nasal Cannula Nasal Cannula Oxygen Flow Rate (LPM) 3 3 10/03/20 13:09 10/03/20 13:10 10/03/20 13:36 Temperature Temperature Source Pulse Rate [Apical] 79 74 Respiratory Rate Blood Pressure [Right Arm] 209/91 H 192/105 H Blood Pressure Mean [Right Arm] 130 134 Blood Pressure Source [Right Arm] Automatic Cuff Automatic Cuff Blood Pressure Position [Right Arm] Sitting Sitting 02 Sat by Pulse Oximetry 93 L Oxygen Delivery Method Nasal Cannula Oxygen Flow Rate (LPM) - Lab Data Lab results reviewed: Yes: I reviewed the patient's lab results. Lab Results 10/03/20 12:10: WBC 8.7, RBC 2.41 L, Hgb 7.8 L*, Hct 23.8 L*, MCV 98.5 H, MCH 32.2 H, MCHC 32.7, RDW 14.7, Plt Count 215, MPV 8.5, Neut % (Auto) 81.8 H, Lymph % (Auto) 9.8 L, [place] % (Auto) 7.7, Eos % (Auto) 0.2, Baso % (Auto) 0.4, Neut # (Auto) 7.2, Lymph # (Auto) 0.9, [place] # (Auto) 0.7, Eos # (Auto) 0.0, Baso # (Auto) 0.0 10/03/20 12:10: PT 12.4 H, INR 1.13 H 10/03/20 12:10: Sodium 141, Potassium 3.4 L, Chloride 104, Carbon Dioxide 30, Anion Gap 10.4, BUN 43 H, Creatinine 2.30 H, Estimated Creat Clear 25, Estimated GFR 28 L, Est GFR ( Amer) 33 L, Glucose 107 H, Calcium 9.3, Total Bilirubin 2.5 H, AST 44, ALT 17, Alkaline Phosphatase 100, Total Protein 7.0, Albumin 3.5, Globulin 3.5 H, Albumin/Globulin Ratio 1.0 L 10/03/20 12:10: SARS-CoV-2 IgG Ab (Rapid) Negative, SARS-CoV-2 IgM Ab (Rapid) Negative Result diagrams:
--- NOTE | 2020-10-03 11:51 | PC.NURSE ---
contacted radiology to check on status of pt cts and xrays, luna states she will check on it.
--- NOTE | 2020-10-03 12:04 | PC.NURSE ---
per JASON Vargas in cardiology pt is to hold Eliquis x5 days leave steven in place for another week f/u with cardiology in 1 week- will call for an appt
--- NOTE | 2020-10-03 12:08 | PC.NURSE ---
Pt to radiology
--- NOTE | 2020-10-03 12:09 | PC.NURSE ---
pt to CT
--- NOTE | 2020-10-03 12:11 | PC.NURSE ---
Pt to rad.
--- NOTE | 2020-10-03 12:18 | HMH.CNCARD ---
History of Present Illness Consult date: 10/03/20 Requesting physician: David Pedraza Chief complaint: fall Additional Medical History:: 1. Fall (10/03/2020) a. Left hip and left arm pain 2. S/p PPM (09/26/2020) a. Sick sinus syndrome 3. Excessive bruising at pacemaker site(10/03/2020) a. Patient is on Eliquis. 4. History of CVA 5. Atrial fibrillation a. Currently on Eliquis 6. Hard of hearing History of present illness: 80-year-old male presented to the emergency room after a fall. Patient is a poor historian. Patient is very hard of hearing. No family is with patient at this time. EMS stated and daughter called due to patient was found lying on the floor. Patient did not lose consciousness. said she was unable to get patient up. EMS stated patient may have laid on the floor for 1 to 2 hours prior to their arrival. Patient is able to answer simple questions. Patient denies chest pain, tightness or pressure. Patient denies shortness of breath. Patient is on O2 at 2 L by nasal cannula. Pulse ox 98% on the 2 L. Patient complains of left hip and left arm pain. No obvious deformities noted. Patient does have a good left pedal pulse and left radial pulse. Patient is postop pacemaker implantation on 09/26/2020. Patient did have pacemaker implanted at this facility by Dr. Almonte. Patient was asked to stop his Eliquis prior to having a pacemaker implanted. Patient and family did not stop the Eliquis and therefore a large hematoma appeared at pacemaker site. Patient is 1 week postop. Hematoma noted with excessive amount of bruising down the left arm radiating to the mid back area. Paresh at the incision site are clean and dry. No drainage noted at the site. Patient denies pain at the pacemaker site. Patient was downloaded today there was no events noted. Did look like patient did have a high heart rate of 170 bpm on October 01, 2020. Discussed plan of care with Dr. Pedraza (ER physician) and Dr. Almonte. Patient will hold Eliquis for 5 days due to hematoma. [place] will remain in place until follow-up with cardiology clinic in 1 week. Patient is return to cardiac clinic in 1 week for follow-up and staple removal. Patient is return earlier to the cardiac clinic if he develops any symptoms. Thank you for letting cardiology participate in the care of this patient. [facility] History I have reviewed the patient's past medical history: Yes Medical History: Reports:: Atrial Fibrillation, Cancer, Chronic Obstructive Pulmonary Disease (COPD), Cerebrovascular Accident, Hyperlipidemia, Hypertension, MRSA, Renal Disease, Transient Ischemic Attacks (TIA) Denies:: Diabetes Mellitus Type 1, Diabetes Mellitus Type 2, Internal Pacemaker, Seizures *Have you ever received a pneumonia vaccine?: Yes *Have you received a flu vaccine this season?: Yes Other Medical History: Reports: Blood Transfusion Reaction, Cataracts Laterality Cases: Right: Other Other Surgeries: Yes: Appendectomy, Cardiac Catheterization, Colonoscopy, Hernia Repair, Other. No: Pacemaker Amputation: No Fractures: No - *Social History Smoking Status: Current every day smoker Tobacco Type: cigarettes # Packs/Day (cigarettes): 1 #Yrs smoked (if former smoker): 50 Alcohol Intake: never Alcohol Intake Frequency:: other Substance Use Type: denies use *Occupational Status:: other Housing: house Household Members: spouse *Travel in the last 8 weeks: None Family Hx:: Cancer Meds Home Medications Medication Instructions Recorded Confirmed Type Aspirin [Aspir 81] 81 mg PO DAILY 10/06/17 09/25/20 History Oxybutynin Chloride [Oxybutynin 15 mg PO HS 05/12/19 10/03/20 History Chloride ER] memantine ER 28 mg-donepezil 10 mg 1 cap PO DAILY 11/15/19 10/03/20 History capsule sprinkle,ext.release 24 hr apixaban 5 mg tablet 2.5 mg PO BID tab 11/28/19 10/03/20 History hydralazine 25 mg tablet 25 mg PO TID #90 tab 08/15/2009/05
--- NOTE | 2020-10-03 12:18 | PC.NURSE ---
follow up appt for cardiology made for October 10 at 10:30 am
[2020-10-03 12:30] LABS: Basophils % 0.4 % (0.1-2.0); Eosinophils % 0.2 % (0.1-12.0); Lymphocytes # 0.9 K/mm3 (0.7-4.5); Lymphocytes % 9.8 % (10-50); Mean Corpuscular HGB Conc 32.7 g/dL (31.8-35.4); Mean Corpuscular Hemoglobin 32.2 pg (27.0-31.2); Mean Corpuscular Volume 98.5 fl (80-94); Mean Platelet Volume 8.5 fl (7.4-10.4); Monocytes # 0.7 K/mm3 (0.1-1.0); Monocytes % 7.7 % (1.7-9.3); Neutrophils # 7.2 K/mm3 (1.8-7.8); Neutrophils % 81.8 % (37.0-80.0); Platelet Count 215 K/mm3 (142-424); Red Blood Count 2.41 M/mm3 (4.60-6.20); Red Cell Distribution Width 14.7 % (11.5-17.5); White Blood Count 8.7 K/mm3 (4.8-10.8)
[2020-10-03 12:31] LABS: Hematocrit 23.8 % (42.0-52.0); Hemoglobin 7.8 g/dL (14.1-18.0)
--- NOTE | 2020-10-03 12:32 | PC.NURSE ---
Addendum entered by Soledad Greene RN 10/03/20 12:49: aware of H&H 7.8 and 23.8 Original Note: aware of critical hgh of 7.8 and hemoglobin 23.8
[2020-10-03 12:45] LABS: Potassium 3.4 mmoL/L (3.5-5.1); Sodium 141 mmol/L (136-145)
[2020-10-03 12:47] LABS: Blood Urea Nitrogen 43 mg/dl (9-20); Creatinine Clearance Estimated 25 mL/min (50-200); Estimated Glomerular Filt Rate 28 ml/min (>60); GFR (African American) 33 ML/MIN (>60)
[2020-10-03 12:48] LABS: Albumin Level 3.5 g/dl (3.5-5.0); Calcium 9.3 mg/dl (8.4-10.2); Carbon Dioxide 30 mmol/L (22.0-30.0); Globulin 3.5 g/dL (1.3-3.2); Glucose 107 mg/dl (74-100)
--- NOTE | 2020-10-03 12:49 | PC.NURSE ---
pt return from radiology
[2020-10-03 12:52] LABS: Anion Gap 10.4 mEq/L (5-15); Chloride 104 mmol/L (98-107); INR 1.13 (0.9-1.1); Prothrombin Time 12.4 seconds (9.4-11.8)
[2020-10-03 12:55] LABS: Alanine Aminotransferase 17 U/L (12-78); Alkaline Phosphatase 100 U/L (38-126); Aspartate Amino Transferase 44 U/L (17-59); Bilirubin,Total 2.5 mg/dl (0.2-1.3)
--- NOTE | 2020-10-03 13:58 | CT_ITS ---
PROCEDURE: CT CHEST WO CON CLINICAL INDICATION: drop in hemoglobin after pacemaker insertion, patient fell today COMPARISON: CT CT CHEST WO CON from 11/23/2019 TECHNIQUE: Axial images obtained with sagittal and coronal reformats. All CT scans at the facility use one or more dose reduction, viz: automated exposure control, ma/kV adjustment per patient size (including targeted exams where dose is matched to indication, i.e. head), or iterative reconstruction technique. FINDINGS: HEART AND MEDIASTINAL STRUCTURES: There is mild generalized cardiomegaly mild aortic tortuosity. The pacemaker electrodes appear to be in satisfactory position. LUNGS AND PLEURAL SPACES: The lung johnson are well-expanded revealing minimal postinflammatory scarring right upper lobe and mild atelectasis and or passive congestion in the posterior basilar segments of both lower lobes. There is no pneumothorax. The striking finding is an oval soft tissue mass immediately beneath the metallic pacemaker left upper chest wall and superficial to the pectoralis major muscle. This oval mass shows increased attenuation compared to the adjacent pectoralis muscle. It measures 9 point 4 by 5.5 cm on the axial image, the superior inferior dimension measures 4.7 cm. . This likely is a hematoma. The pacemaker electrodes are seen going through this mass into the left subclavian vein. BONY STRUCTURES: No acute bony abnormalities apparent. UPPER ABDOMEN: Unremarkable. ADDITIONAL FINDINGS: No other significant abnormalities. IMPRESSION: Probable large hematoma immediately beneath the pacemaker with measurements as described showing smooth well-defined borders and extrinsically compressing the left pectoralis major muscle somewhat. Dictated by: Dr. Dale Gonzalez MD 10/03/2020 14:36 Dr. Dale Gonzalez MD in [place] 10/03/2020 14:36
--- NOTE | 2020-10-03 14:04 | PC.NURSE ---
notified rad of ct chest
[2020-10-03 14:20] LABS: Coronavirus 19 IgG Antibody Negative (Negative); Coronavirus 19 IgM Antibody Negative (Negative)
--- NOTE | 2020-10-03 15:58 | PC.NURSE ---
HAILEY JACKSON speaking with Dr. Almonte.
--- NOTE | 2020-10-03 16:01 | PC.NURSE ---
Maeve JACKSON [employer] for Dr Quinteros (Dr Rouse).
--- NOTE | 2020-10-03 16:51 | PC.NURSE ---
Nichole Ridley at bedside
--- NOTE | 2020-10-03 17:08 | P.HP_ITS ---
*Admission Date: 10/03/20 <Abril Restrepo - 10/03/20 17:39> *Chief complaint: Fall <Nichole Rdiley - 10/03/20 17:23> *History of present illness: 80-year-old male presented to the emergency room after a fall. Patient is a poor historian. Patient is very hard of hearing. No family is with patient at this time. EMS stated and daughter called due to patient was found lying on the floor. Patient did not lose consciousness. said she was unable to get patient up. EMS stated patient may have laid on the floor for 1 to 2 hours prior to their arrival. Patient is able to answer simple questions. Patient denies chest pain, tightness or pressure. Patient denies shortness of breath. Patient is on O2 at 2 L by nasal cannula. Pulse ox 98% on the 2 L. Patient complains of left hip and left arm pain. No obvious deformities noted. Patient does have a good left pedal pulse and left radial pulse. Patient is postop pacemaker implantation on 09/26/2020. Patient did have pacemaker implanted at this facility by Dr. Almonte. Patient was asked to stop his Eliquis prior to having a pacemaker implanted. Patient and family did not stop the Eliquis and therefore a large hematoma appeared at pacemaker site. Patient is 1 week postop. Hematoma noted with excessive amount of bruising down the left arm radiating to the mid back area. Paresh at the incision site are clean and dry. No drainage noted at the site. Patient denies pain at the pacemaker site. Patient was downloaded today there was no events noted. Did look like patient did have a high heart rate of 170 bpm on October 01, 2020. Dr. Dela Cruz ordered lab work. Lab work revealed Hgb 7.8/ HCT 23.8. CT scan of chest was also ordered showing a probable large hematoma immediately beneath the pacemaker with measurements as described showing smooth well-defined borders and extrinsically compressing the left pectoralis major muscle somewhat. Due to the critical status of this pt, pt will be admitted under PCP. Recommend to infuse 1-2 units of PRBC (per PCP).. Monitor pt's cardiac status. Stop Eluiquis due to hematoma and low hemoglobin. (above as per Cardiology) <OsmeltajAbril - 10/03/20 17:39> [facility] History I have reviewed the patient's past medical history: Yes <Abril Restrepo 10/03/20 17:39> Medical History: Reports:: Atrial Fibrillation, Cancer, Chronic Obstructive Pulmonary Disease (COPD), Cerebrovascular Accident, Dementia, Hyperlipidemia, Hypertension, MRSA, Renal Disease, Transient Ischemic Attacks (TIA) Denies:: BPH, Diabetes Mellitus Type 1, Diabetes Mellitus Type 2, Internal Pacemaker, Seizures <[facility] 10/03/20 17:23> *Have you ever received a pneumonia vaccine?: No <KeyanaNichole - 10/03/20 17:23> *Have you received a flu vaccine this season?: No <[facility] 10/03/20 17:23> Other Medical History: Reports: Blood Transfusion Reaction, Cataracts <[facility] 10/03/20 17:23> Laterality Cases: Right: Other, Bilateral: Cataract <[facility] 10/03/20 17:23> Other Surgeries: Yes: Appendectomy, Cardiac Catheterization, Colonoscopy, Hernia Repair, Other. No: Pacemaker <[facility] 10/03/20 17:23> Amputation: No <[facility] 10/03/20 17:23> Fractures: No <KeyanaNichole 10/03/20 17:23> - *Social History Smoking Status: Current every day smoker <KeyanaNichole - 10/03/20 17:23> Tobacco Type: cigarettes <[facility] 10/03/20 17:23> # Packs/Day (cigarettes): 1 <[facility] 10/03/20 17:23> #Yrs smoked (if former smoker): 50 <[facility] 10/03/20 17:23> Alcohol Intake: never <[facility] 10/03/20 17:23> Alcohol Intake Frequency:: other <[facility] 10/03/20 17:23> Substance Use Type: denies use <
--- NOTE | 2020-10-03 17:36 | PC.NURSE ---
spoke with aubrie on second floor, states she will come down to get report on pt.
--- NOTE | 2020-10-03 17:56 | PC.NURSE ---
report given to albaniarn
--- NOTE | 2020-10-03 18:09 | PC.NURSE ---
1756 Report received from Anil Rogel RN in the ER. 1805 Pt transported to department, room 210 via stretcher, tolerated transport well. Lab personnel present at bedside for type and screen.
--- NOTE | 2020-10-03 18:30 | PC.NURSE ---
lab personnel back at bedside at this time.
--- NOTE | 2020-10-03 18:40 | PC.NURSE ---
Message relayed from Dr Rouse by Fredrick Russell RN. Pt is to only receive 2 units of PRBC's. Orders exist for a total of 3 units to be transfused. Order for single unit of PRBC's to be transfused was d/c'd, by myself r/t Fredrick Russell RN not having access to d/c transfusion order.
--- NOTE | 2020-10-03 20:00 | PC.NURSE ---
Pt needed a larger IV per protocol for blood transfusion, house called to try to start, 2 attempts, Burglary Investigator from the ER called to try, IV successful 20G Rt AC
--- NOTE | 2020-10-03 20:57 | HMH.PHAVTE ---
[facility] Pharmacy VTE Monitoring - Patient Demographics Admission date: 10/03/20 Report Date: 10/03/20 Time: 20:57 Allergies/Adverse Reactions: Patient Allergies No Known Allergies Allergy (Verified 09/25/20 14:09) Height: 1.73 m Weight: 68.039 kg Patient Problems: Current Active Problems Fall (Acute) Hematoma (Acute) Hematoma, chest wall (Acute) Anemia requiring transfusions (Acute) History of CVA (cerebrovascular accident) (Chronic) Hypertension (Chronic) History of permanent cardiac pacemaker placement (Acute) Debility (Acute) senior living current use of anticoagulant (Chronic) Chronic renal failure (Chronic) COPD (chronic obstructive pulmonary disease) (Chronic) Renal insufficiency (Chronic) Essential hypertension (Chronic) Chronic atrial fibrillation (Chronic) - VTE Risk Labs: VTE Related Lab Results Hgb 7.8 g/dL (14.1-18.0) L* 10/03/20 12:10 Hct 23.8 % (42.0-52.0) L* 10/03/20 12:10 Plt Count 215 K/mm3 (142-424) 10/03/20 12:10 PT 12.4 seconds (9.4-11.8) H 10/03/20 12:10 INR 1.13 (0.9-1.1) H 10/03/20 12:10 BUN 43 mg/dl (9-20) H 10/03/20 12:10 Creatinine 2.30 mg/dl (0.66-1.25) H 10/03/20 12:10 Estimated Creat Clear 25 mL/min (50-200) 10/03/20 12:10 Clinical Trial Participant: No - Prophylaxis VTE Prophylaxis Ordered?: Yes Types of VTE Prophylaxis: TEDS Knee High
--- NOTE | 2020-10-03 21:00 | HMH.GSCON ---
*Admission Date: 10/03/20 *Reason for consult:: Hematoma with anemia *History of present illness: This is a 80-year-old gentleman seen in consultation from Dr. Rouse for evaluation regarding a large postoperative hematoma status post pacemaker implantation. Please see HPI from primary service H&P forwarded below. From PCP H&P: *History of present illness: 80-year-old male presented to the emergency room after a fall. Patient is a poor historian. Patient is very hard of hearing. No family is with patient at this time. EMS stated and daughter called due to patient was found lying on the floor. Patient did not lose consciousness. said she was unable to get patient up. EMS stated patient may have laid on the floor for 1 to 2 hours prior to their arrival. Patient is able to answer simple questions. Patient denies chest pain, tightness or pressure. Patient denies shortness of breath. Patient is on O2 at 2 L by nasal cannula. Pulse ox 98% on the 2 L. Patient complains of left hip and left arm pain. No obvious deformities noted. Patient does have a good left pedal pulse and left radial pulse. Patient is postop pacemaker implantation on 09/26/2020. Patient did have pacemaker implanted at this facility by Dr. Almonte. Patient was asked to stop his Eliquis prior to having a pacemaker implanted. Patient and family did not stop the Eliquis and therefore a large hematoma appeared at pacemaker site. Patient is 1 week postop. Hematoma noted with excessive amount of bruising down the left arm radiating to the mid back area. Paresh at the incision site are clean and dry. No drainage noted at the site. Patient denies pain at the pacemaker site. Patient was downloaded today there was no events noted. Did look like patient did have a high heart rate of 170 bpm on October 01, 2020. Dr. Dela Cruz ordered lab work. Lab work revealed Hgb 7.8/ HCT 23.8. CT scan of chest was also ordered showing a probable large hematoma immediately beneath the pacemaker with measurements as described showing smooth well-defined borders and extrinsically compressing the left pectoralis major muscle somewhat. Due to the critical status of this pt, pt will be admitted under PCP. Recommend to infuse 1-2 units of PRBC (per PCP).. Monitor pt's cardiac status. Stop Eluiquis due to hematoma and low hemoglobin. Review of Systems - Review of Systems Review of systems:: unable to obtain - *Neurologic Reports abnormal walking, Reports abnormal hearing, Reports abnormal speech, Reports confusion, Reports headache(s), Reports lack of coordination, Reports weakness, Denies seizure-like activity [facility] History Medical History: Reports:: Atrial Fibrillation, Cancer, Chronic Obstructive Pulmonary Disease (COPD), Cerebrovascular Accident, Dementia, Hyperlipidemia, Hypertension, MRSA, Renal Disease, Transient Ischemic Attacks (TIA) Denies:: BPH, Diabetes Mellitus Type 1, Diabetes Mellitus Type 2, Internal Pacemaker, Seizures *Have you ever received a pneumonia vaccine?: No *Have you received a flu vaccine this season?: No Other Medical History: Reports: Blood Transfusion Reaction, Cataracts Laterality Cases: Right: Other, Bilateral: Cataract Other Surgeries: Yes: Appendectomy, Cardiac Catheterization, Colonoscopy, Hernia Repair, Other. No: Pacemaker Amputation: No Fractures: No - *Social History Smoking Status: Current every day smoker Tobacco Type: cigarettes # Packs/Day (cigarettes): 1 #Yrs smoked (if former smoker): 50 Alcohol Intake: never Alcohol Intake Frequency:: other Substance Use Type: denies use *Occupational Status:: retired Housing: house Household Members: spouse *Travel in the last 8 weeks: None Family Hx:: Cancer, Kidney Disease Meds Home Medications Medication Instructions Recorded Confirmed Type Aspirin [Aspir 81] 81 mg PO DAILY 10/06/17 09/25/20 History Oxybutynin Chloride [Oxybutynin 15 mg PO HS 05/12/19 10/03/20 History Chloride ER]
--- NOTE | 2020-10-03 22:41 | PC.NURSE ---
Unable to obtain info from pt r/t unclear speech , INfo pulled from medical record
[2020-10-04] VITALS (16 sets, daily range): BP systolic 113–176; BP diastolic 45–99; PULSE 17–106; RESP 16–19; TEMP 36.2–37.2; O2SAT 93–96; BMI 23.0
--- NOTE | 2020-10-04 04:01 | PC.NURSE ---
Lab at the bedside, Pt is a hard stick. Pt has been stuck many times tonight and recieved blood. Lab pulled morning labs at this time to prevent re-sticking
--- NOTE | 2020-10-04 04:08 | PC.NURSE ---
Pt has been restless throughout the shift. A&O with times of confusion, Pt's speech is unclear so making needs known is difficult. Pt received 2 units of blood this shift, 2nd IV went bad at the end of blood transfusion, Bowel sounds present in all 4 quadrants, BLT lung sounds are diminished, Pt has a large hematoma over pacemaker site, Dr. Fernandez assessed and is aware, Bruising over entire Rt side of the chest, sternum, arm and hip. Pt is on 2L NC
[2020-10-04 04:09] LABS: Basophils % 0.2 % (0.1-2.0); Eosinophils % 0.2 % (0.1-12.0); Hematocrit 39.5 % (42.0-52.0); Lymphocytes # 0.7 K/mm3 (0.7-4.5); Lymphocytes % 6.1 % (10-50); Mean Corpuscular HGB Conc 32.6 g/dL (31.8-35.4); Mean Corpuscular Hemoglobin 30.9 pg (27.0-31.2); Mean Corpuscular Volume 94.9 fl (80-94); Mean Platelet Volume 8.6 fl (7.4-10.4); Monocytes # 0.7 K/mm3 (0.1-1.0); Monocytes % 6.4 % (1.7-9.3); Neutrophils % 87.2 % (37.0-80.0); Platelet Count 190 K/mm3 (142-424); Red Blood Count 4.17 M/mm3 (4.60-6.20); Red Cell Distribution Width 14.9 % (11.5-17.5); White Blood Count 11.5 K/mm3 (4.8-10.8)
[2020-10-04 04:14] LABS: MANUAL DIFFERENTIAL MANUAL DIFFERENTIAL (MANUAL DIFF)
[2020-10-04 04:15] LABS: Hemoglobin 13.2 g/dL (14.1-18.0)
[2020-10-04 04:22] LABS: Chloride 106 mmol/L (98-107); Potassium 4.1 mmoL/L (3.5-5.1); Sodium 142 mmol/L (136-145)
[2020-10-04 04:24] LABS: Blood Urea Nitrogen 44 mg/dl (9-20); Creatinine Clearance Estimated 29 mL/min (50-200); Estimated Glomerular Filt Rate 32 ml/min (>60); GFR (African American) 39 ML/MIN (>60)
[2020-10-04 04:25] LABS: Alanine Aminotransferase 22 U/L (12-78); Albumin Level 3.8 g/dl (3.5-5.0); Albumin/Globulin Ratio 1.1 (1.1-1.8); Alkaline Phosphatase 114 U/L (38-126); Anion Gap 12.1 mEq/L (5-15); Aspartate Amino Transferase 54 U/L (17-59); Bilirubin,Total 3.9 mg/dl (0.2-1.3); Calcium 9.4 mg/dl (8.4-10.2); Carbon Dioxide 28 mmol/L (22.0-30.0); Globulin 3.6 g/dL (1.3-3.2); Glucose 101 mg/dl (74-100); Total Protein,Serum 7.4 g/dl (6.3-8.2)
[2020-10-04 04:34] LABS: Eosinophils % 1 % (0-3); Lymphocytes % 6 % (10-50); Monocytes % 3 % (2-9); Neutrophils % 89 % (42-76); Total Cells Counted 100
[2020-10-04 04:35] LABS: Ovalocytes 1+; Platelet Estimate Normal
--- NOTE | 2020-10-04 04:55 | PC.WOUNDNOTE ---
Wound Location: Left chest, anterior shoulder - pictures by primary RN Karel Harry Bruising, redness, edema, hematoma under pacemaker placement Inflammation/swelling Y/N: edema and heat Pain and/or tenderness Y/N: y
--- NOTE | 2020-10-04 05:00 | PC.WOUNDNOTE ---
Wound Location: Left Arm *Pictures done by primary RN Karel Harry Bruising t/o, [employer] CLERK < 3, pulses WNL Warm, edematous STEPHON
--- NOTE | 2020-10-04 05:03 | PC.WOUNDNOTE ---
Wound Location: Centralized Umbilicus *Pictures completed by primary RN Karel Reza
--- NOTE | 2020-10-04 05:05 | PC.WOUNDNOTE ---
Wound Location: Left flank, side *Pictures by primary RN Karel Harry Bruising left flank to left hip
--- NOTE | 2020-10-04 05:59 | PC.NURSE ---
Assessed Pt's IV site and Pt's IV infiltrated, IV removed, Arm elevated
--- NOTE | 2020-10-04 06:03 | PC.NURSE ---
Brick Machine Operator from the ER coming to attempt an IV
--- NOTE | 2020-10-04 06:21 | PC.NURSE ---
Kailey Brunner bump grader operator attempted to get IV access and was unsuccessful. Pt started becoming combative, House said to call
--- NOTE | 2020-10-04 07:00 | HMH.GSPN ---
Subjective Patient reports: no new complaints Progress Note: A&P (1) Hematoma, chest wall Status: Acute Assessment and plan: No need for emergent evacuation. Continue management as per cardiology service. Will continue to monitor for signs of infection or significant/active expansion. (2) Anemia requiring transfusions Status: Acute (3) Fall Status: Acute (4) History of permanent cardiac pacemaker placement Status: Acute (5) Chronic atrial fibrillation Status: Chronic (6) Essential hypertension Status: Chronic (7) USP current use of anticoagulant Status: Chronic (8) History of CVA (cerebrovascular accident) Status: Chronic (9) Hypertension Status: Chronic (10) Chronic renal failure Status: Chronic (11) COPD (chronic obstructive pulmonary disease) Status: Chronic (12) Renal insufficiency Status: Chronic (13) Debility Status: Acute Exam Vital signs and Labs for Last 24 Hours: Temp Pulse Resp BP Pulse Ox 97.4 F L 84 16 145/85 H 93 L 10/04/20 04:00 10/04/20 04:00 10/04/20 04:00 10/04/20 04:00 10/04/20 04:00 Laboratory Results - last 24 hr 10/03/20 12:10: WBC 8.7, RBC 2.41 L, Hgb 7.8 L*, Hct 23.8 L*, MCV 98.5 H, MCH 32.2 H, MCHC 32.7, RDW 14.7, Plt Count 215, MPV 8.5, Neut % (Auto) 81.8 H, Lymph % (Auto) 9.8 L, Frontier % (Auto) 7.7, Eos % (Auto) 0.2, Baso % (Auto) 0.4, Neut # (Auto) 7.2, Lymph # (Auto) 0.9, Frontier # (Auto) 0.7, Eos # (Auto) 0.0, Baso # (Auto) 0.0 10/03/20 12:10: PT 12.4 H, INR 1.13 H 10/03/20 12:10: Sodium 141, Potassium 3.4 L, Chloride 104, Carbon Dioxide 30, Anion Gap 10.4, BUN 43 H, Creatinine 2.30 H, Estimated Creat Clear 25, Estimated GFR 28 L, Est GFR ( Amer) 33 L, Glucose 107 H, Calcium 9.3, Total Bilirubin 2.5 H, AST 44, ALT 17, Alkaline Phosphatase 100, Total Protein 7.0, Albumin 3.5, Globulin 3.5 H, Albumin/Globulin Ratio 1.0 L 10/03/20 12:10: SARS-CoV-2 IgG Ab (Rapid) Negative, SARS-CoV-2 IgM Ab (Rapid) Negative 10/03/20 18:13: Blood Type B Positive, Antibody Screen Negative, Crossmatch (AHG) See Detail 10/03/20 18:46: Blood Type Confirm B Positive 10/04/20 03:55: WBC 11.5 H D, RBC 4.17 L D, Hgb 13.2 L D, Hct 39.5 L, MCV 94.9 H, MCH 30.9, MCHC 32.6, RDW 14.9, Plt Count 190, MPV 8.6, Neut % (Auto) 87.2 H, Lymph % (Auto) 6.1 L, Frontier % (Auto) 6.4, Eos % (Auto) 0.2, Baso % (Auto) 0.2, Neut # (Auto) 10.0 H, Lymph # (Auto) 0.7, Frontier # (Auto) 0.7, Eos # (Auto) 0.0, Baso # (Auto) 0.0, Total Counted 100, Neutrophils % (Manual) 89 H, Lymphocytes % (Manual) 6 L, Monocytes % (Manual) 3, Eosinophils % (Manual) 1, Basophils % (Manual) 1.0, Platelet Estimate Normal, RBC Morphology Not Reportable, Ovalocytes 1+ 10/04/20 03:55: Sodium 142, Potassium 4.1 D, Chloride 106, Carbon Dioxide 28, Anion Gap 12.1, BUN 44 H, Creatinine 2.00 H, Estimated Creat Clear 29, Estimated GFR 32 L, Est GFR ( Amer) 39 L, Glucose 101 H, Calcium 9.4, Total Bilirubin 3.9 H, AST 54, ALT 22 D, Alkaline Phosphatase 114, Total Protein 7.4, Albumin 3.8, Globulin 3.6 H, Albumin/Globulin Ratio 1.1 I & O for Last 24 hours: Intake & Output 10/01/20 10/02/20 10/03/20 10/04/20 11:59 11:59 11:59 11:59 Intake Total 500 / 500 Balance 500 / 500 Weight 150 lb 152 lb 1.903 oz - Constitutional no acute distress, chronically ill appearing - Routine Chest/Breast/Axilla Exam Comments: Mildly increased swelling of the left arm. No sign of definite expansion of the very large hematoma. No sign of underlying infectious process. - *Routine Respiratory Exam Absent: respiratory distress - *Routine Cardiovascular Exam Comments: Regular rate
--- NOTE | 2020-10-04 08:20 | HMH.ACPN2 ---
<Abril Restrepo - Last Filed: 10/04/20 08:20> Internal Medicine - PN: Subj *Date: 10/04/20 *Time: 08:20 Interval history: Patient is awake and alert this morning. His only pain is in his chest wall. He states he slept well and tried to eat some breakfast. His H&H has improved after transfusion. Dr. Fernandez was consulted due to the hematoma and he felt the risks of intervention would outweigh the risk of close observation. Exam Vital signs and Labs for Last 24 Hours: Temp Pulse Resp BP Pulse Ox 98.2 F 84 19 176/89 H 93 L 10/04/20 07:47 10/04/20 07:47 10/04/20 07:47 10/04/20 07:47 10/04/20 07:47 Laboratory Results - last 24 hr 10/03/20 12:10: WBC 8.7, RBC 2.41 L, Hgb 7.8 L*, Hct 23.8 L*, MCV 98.5 H, MCH 32.2 H, MCHC 32.7, RDW 14.7, Plt Count 215, MPV 8.5, Neut % (Auto) 81.8 H, Lymph % (Auto) 9.8 L, Desha % (Auto) 7.7, Eos % (Auto) 0.2, Baso % (Auto) 0.4, Neut # (Auto) 7.2, Lymph # (Auto) 0.9, Desha # (Auto) 0.7, Eos # (Auto) 0.0, Baso # (Auto) 0.0 10/03/20 12:10: PT 12.4 H, INR 1.13 H 10/03/20 12:10: Sodium 141, Potassium 3.4 L, Chloride 104, Carbon Dioxide 30, Anion Gap 10.4, BUN 43 H, Creatinine 2.30 H, Estimated Creat Clear 25, Estimated GFR 28 L, Est GFR ( Amer) 33 L, Glucose 107 H, Calcium 9.3, Total Bilirubin 2.5 H, AST 44, ALT 17, Alkaline Phosphatase 100, Total Protein 7.0, Albumin 3.5, Globulin 3.5 H, Albumin/Globulin Ratio 1.0 L 10/03/20 12:10: SARS-CoV-2 IgG Ab (Rapid) Negative, SARS-CoV-2 IgM Ab (Rapid) Negative 12/30/20 18:13: Blood Type B Positive, Antibody Screen Negative, Crossmatch (AHG) See Detail 10/03/20 18:46: Blood Type Confirm B Positive 10/04/20 03:55: WBC 11.5 H D, RBC 4.17 L D, Hgb 13.2 L D, Hct 39.5 L, MCV 94.9 H, MCH 30.9, MCHC 32.6, RDW 14.9, Plt Count 190, MPV 8.6, Neut % (Auto) 87.2 H, Lymph % (Auto) 6.1 L, Desha % (Auto) 6.4, Eos % (Auto) 0.2, Baso % (Auto) 0.2, Neut # (Auto) 10.0 H, Lymph # (Auto) 0.7, Desha # (Auto) 0.7, Eos # (Auto) 0.0, Baso # (Auto) 0.0, Total Counted 100, Neutrophils % (Manual) 89 H, Lymphocytes % (Manual) 6 L, Monocytes % (Manual) 3, Eosinophils % (Manual) 1, Basophils % (Manual) 1.0, Platelet Estimate Normal, RBC Morphology Not Reportable, Ovalocytes 1+ 10/04/20 03:55: Sodium 142, Potassium 4.1 D, Chloride 106, Carbon Dioxide 28, Anion Gap 12.1, BUN 44 H, Creatinine 2.00 H, Estimated Creat Clear 29, Estimated GFR 32 L, Est GFR ( Amer) 39 L, Glucose 101 H, Calcium 9.4, Total Bilirubin 3.9 H, AST 54, ALT 22 D, Alkaline Phosphatase 114, Total Protein 7.4, Albumin 3.8, Globulin 3.6 H, Albumin/Globulin Ratio 1.1 I & O for Last 24 hours: Intake & Output 10/01/20 10/02/20 10/03/20 10/04/20 11:59 11:59 11:59 11:59 Intake Total 500 / 500 Balance 500 / 500 Weight 150 lb 152 lb 1.903 oz - Constitutional no acute distress - *Routine Respiratory Exam Present: CTA bilaterally - *Routine Cardiovascular Exam Present: RRR - *Routine Abdominal Exam Present: soft, normoactive bowel sounds. Absent: tenderness - *Routine Extremities Exam Absent: cyanosis, clubbing, edema - *Routine Skin Exam Comments: Large hematoma on chest wall, left arm and left flank ecchymotic Assessment and Plan (1) Hematoma, chest wall Status: Acute Qualifiers: Encounter type: initial encounter Laterality: left Qualified Code(s): S20.212A - Contusion of left front wall of thorax, initial encounter Category: Medical Code(s): S20.219A - Contusion of unspecified front wall of thorax, initial encounter (2) Anemia requiring transfusions Status: Acute Category: Medical Code(s): D64.9 - Anemia, unspecified (3) Fall Status: Acute Category: Medical Code(s): W19.XXXA - Unspecified fall, initial encounter (4) History of permanent cardiac pacemaker placement Status: Acute Category: Surgical Code(s): Z95.0 - Presence of cardiac pacemaker (5) Chronic atrial fibrillation Status: Chronic Category: Medical Code(s): I48.2 - Chronic atr
--- NOTE | 2020-10-04 11:29 | HMH.PTEV ---
Physical Therapy Evaluation Rehab PT IP Evaluation Start: 10/04/20 08:15 Freq: ONCE Status: Active Protocol: Document 10/04/20 11:24 BOB (Rec: 10/04/20 11:29 BOB [id number]) Subjective/History History History 80-year-old male presented to the emergency room after a fall. Patient is a poor historian. Patient is very hard of hearing. No family is with patient at this time. EMS stated and daughter called due to patient was found lying on the floor. Patient did not lose consciousness. said she was unable to get patient up. EMS stated patient may have laid on the floor for 1 to 2 hours prior to their arrival. Patient is able to answer simple questions. Pt's language is very garbled and difficult to understand. Subjective Subjective none coherent Rehab PT IP Eval Objective Appearance Patient Behavior Uncooperative,Resistive to Care Patient Orientation Name,Birthday Difficulty following instructions moderate Speech Pattern Garbled Ambulation Patient Able to Ambulate No Balance Ability to Arise Unable Sitting Balance Leans or slides in chair Standing Balance Unsteady Dynamic Sitting Balance Ability Poor Dynamic Standing Balance Ability Zero Transfers Bed Transfer Ability Maximum x 1 (75% assist) Sit to Stand Bed Transfer Ability Maximum x 2 (75% assist) Rehab PT IP prob,goals,plan Problems Date of Evaluation: 10/04/20 PT IP Problems Bed Mobility,Transfers,Gait, Balance,Self care,Safety Rehab Potential Rehab Potential Innapropriate for Skilled Therapy Discharge Plan PT Discharge Plan Pt was resistive to care and innapropriate for therapy - pulling against therapist - showing signs of agitation and aggressiveness. Pt is unable to care for self and is unsafe to return home w/ elderly spouse. Pt will need LTC placement
--- NOTE | 2020-10-04 11:34 | SW/DCPLANNER ---
Addendum entered by Marisol Porter 10/04/20 13:25: Patient was orginally set up with [facility] but due to re admission to [facility] services never began for this patient. Patient information and order has been faxed to [facility] for home health service. I will follow up with Home Care once information/order is reviewed. This patient will discharge home today. Addendum entered by Marisol Porter 10/04/20 13:06: I have spoke with patients daughter (Francoise) regarding discharge plans. Francoise stated that patients cares for him at home and herself and lives close by and assist patient. I did explain options of placement vs home health. Francoise stated that they would like to go home with home health services. Francoise did not have a preference for home health agency. Patient has also requested that patient have a hospital bed at home. I will speak with MD and order hospital bed and home health if MD is agreeable at time of discharge. Original Note: I have attempted to contact patients and daughter regarding discharge plans. No answer from daughter or at this time but voicemail has been left. I will continue to try to contact patients family. Family is not present in patients room.
--- NOTE | 2020-10-04 11:45 | HMH.PHAINT ---
MEDICATION RECONCILIATION COMPLETED ON PATIENT USING EXTERNAL FILL HISTORY FROM PHARMACY AND LIST FROM CARDIOLOGY OFFICE. -ISMAEL MENDEZD
--- NOTE | 2020-10-04 13:22 | PC.NURSE ---
Pt. has a medical condition which requires positioning of the body in ways not feasible with an ordinary bed, in order to alleviate pain.
--- NOTE | 2020-10-04 13:33 | SW/DCPLANNER ---
Addendum entered by Marisol Porter 10/08/20 11:59: Mary with [facility] has stated that patient information has been reviewed and services will begin this week for this patient. Addendum entered by Marisol Porter 10/08/20 10:04: Patient information has been faxed to [facility] for home health service. I will follow up with [facility] once patient information is reviewed. Patient discharged home on 10/05/20. Original Note: I have spoke with patients daughter regarding discharge plans. Francoise stated that patient resides at home with his . Daughter and her lives close to patient and assist with family at home. I have spoke with daughter regarding placement vs home health. Daughter was quick to state they prefer home health services. Daughter did not have a preference for home health agency. Daughter has also requested that a hospital bed and a wheel chair be ordered for this patient at home. Patient information and order has been faxed to [facility] for hospital bed and wheel chair. I will set patient up with home health services on Thursday if patient discharges home over the weekend. Dr Quinteros is aware of plans.
--- NOTE | 2020-10-04 13:35 | PC.NURSE ---
Pt. will also need a wheelchair due to the pt's inability to ambulate safely with a walker and will need a wheelchair to get around at home.
--- NOTE | 2020-10-04 16:16 | PC.NURSE ---
Routine reassessment completed. No acute changes from previous assessment noted. Heart remains RR, Lungs CTA, BS present x4 quad. Hematoma to left chest wall and bruising to left side and left arm remains unchanged from this AM. Pt. remains confused. Pt. reports discomfort to left chest wall when touched. Pt. denies pain otherwise. Pt. denies needs, will continue to monitor.
[2020-10-05] VITALS: BP 110/60; PULSE 94; RESP 18; TEMP 36.8; O2SAT 97
[2020-10-05 04:00] VITALS: BP 135/77; PULSE 82; RESP 16; TEMP 36.8; O2SAT 98
--- NOTE | 2020-10-05 04:58 | PC.NURSE ---
Pt has slept majority of this shift. Pt has not been able to clearly communicate w/ staff this shift. Pt is alert, but not oriented. Lung sounds diminished t/o all lung bases. Pt continues to tolerate 2 L NC and no cough has been noted this shift. Pt has been incontinent of urine this shift. Hematoma noted to lt chest and bruising t/o lt chest, lt flank and lt arm rom previous fall @ home. Pt was able to tolerate PO meds whole with pudding this shift. No other acute changes or complaints at this time.
[2020-10-05 05:00] VITALS: BMI 22.0
[2020-10-05 08:00] VITALS: BP 179/81; PULSE 75; RESP 17; TEMP 36.4; O2SAT 91
[2020-10-05 09:40] LABS: Basophils % 0.4 % (0.1-2.0); Eosinophils # 0.1 K/mm3 (0.0-0.4); Eosinophils % 0.9 % (0.1-12.0); Lymphocytes # 0.6 K/mm3 (0.7-4.5); Lymphocytes % 5.9 % (10-50); Mean Corpuscular HGB Conc 31.8 g/dL (31.8-35.4); Mean Corpuscular Hemoglobin 30.8 pg (27.0-31.2); Mean Corpuscular Volume 96.8 fl (80-94); Mean Platelet Volume 8.8 fl (7.4-10.4); Monocytes # 0.7 K/mm3 (0.1-1.0); Monocytes % 7.2 % (1.7-9.3); Neutrophils # 7.9 K/mm3 (1.8-7.8); Neutrophils % 85.6 % (37.0-80.0); Platelet Count 126 K/mm3 (142-424); Red Blood Count 5.89 M/mm3 (4.60-6.20); Red Cell Distribution Width 15.3 % (11.5-17.5); White Blood Count 9.2 K/mm3 (4.8-10.8)
[2020-10-05 09:42] LABS: MANUAL DIFFERENTIAL MANUAL DIFFERENTIAL (MANUAL DIFF)
[2020-10-05 09:57] LABS: Chloride 108 mmol/L (98-107); Sodium 145 mmol/L (136-145)
[2020-10-05 09:58] LABS: Potassium 3.7 mmoL/L (3.5-5.1)
[2020-10-05 10:00] LABS: Alanine Aminotransferase 26 U/L (12-78); Albumin Level 3.9 g/dl (3.5-5.0); Alkaline Phosphatase 118 U/L (38-126); Anion Gap 12.7 mEq/L (5-15); Aspartate Amino Transferase 78 U/L (17-59); Bilirubin,Total 4.3 mg/dl (0.2-1.3); Blood Urea Nitrogen 47 mg/dl (9-20); Calcium 9.5 mg/dl (8.4-10.2); Carbon Dioxide 28 mmol/L (22.0-30.0); Creatinine Clearance Estimated 29 mL/min (50-200); Estimated Glomerular Filt Rate 34 ml/min (>60); GFR (African American) 42 ML/MIN (>60); Globulin 3.8 g/dL (1.3-3.2); Glucose 91 mg/dl (74-100); Total Protein,Serum 7.7 g/dl (6.3-8.2)
[2020-10-05 10:10] LABS: Eosinophils % 3 % (0-3); Lymphocytes % 8 % (10-50); Monocytes % 3 % (2-9); Neutrophils % 86 % (42-76); Ovalocytes 1+; Platelet Estimate Slight Decrease; RBC Morphology Normal; Total Cells Counted 100
[2020-10-05 10:13] LABS: Hemoglobin 18.1 g/dL (14.1-18.0)
--- NOTE | 2020-10-05 10:29 | HMH.ACPN2 ---
Internal Medicine - PN: Subj *Date: 10/05/20 *Time: 10:29 Interval history: He rested fairly well last night. He would not participate with physical therapy yesterday and recommendation was for skilled care placement for rehab. A request from care management has spoken with the family and the wish for the patient to return home with home health services. They are in need of a hospital bed and this would be beneficial considering his decreased mobility. He was a bit combative with the cardiac care nurse drawing his blood this morning. His hemoglobin is 18 this morning which is likely not accurate. Exam Vital signs and Labs for Last 24 Hours: Temp Pulse Resp BP Pulse Ox 97.6 F 75 17 179/81 H 91 L 10/05/20 08:00 10/05/20 08:00 10/05/20 08:00 10/05/20 08:00 10/05/20 08:00 Laboratory Results - last 24 hr 10/05/20 09:15: WBC 9.2, RBC 5.89 D, Hgb 18.1 H, Hct 57.0 H, MCV 96.8 H, MCH 30.8, MCHC 31.8, RDW 15.3, Plt Count 126 L D, MPV 8.8, Neut % (Auto) 85.6 H, Lymph % (Auto) 5.9 L, Lipscomb % (Auto) 7.2, Eos % (Auto) 0.9, Baso % (Auto) 0.4, Neut # (Auto) 7.9 H, Lymph # (Auto) 0.6 L, Lipscomb # (Auto) 0.7, Eos # (Auto) 0.1, Baso # (Auto) 0.0, Total Counted 100, Neutrophils % (Manual) 86 H, Lymphocytes % (Manual) 8 L, Monocytes % (Manual) 3, Eosinophils % (Manual) 3, Platelet Estimate Slight decrease, RBC Morphology Normal, Ovalocytes 1+ 10/05/20 09:15: Sodium 145, Potassium 3.7, Chloride 108 H, Carbon Dioxide 28, Anion Gap 12.7, BUN 47 H, Creatinine 1.90 H, Estimated Creat Clear 29, Estimated GFR 34 L, Est GFR ( Amer) 42 L, Glucose 91, Calcium 9.5, Total Bilirubin 4.3 H, AST 78 H D, ALT 26, Alkaline Phosphatase 118, Total Protein 7.7, Albumin 3.9, Globulin 3.8 H, Albumin/Globulin Ratio 1.0 L I & O for Last 24 hours: Intake & Output 10/02/20 10/03/20 10/04/20 10/05/20 11:59 11:59 11:59 11:59 Intake Total 500 / 500 600 / 600 Balance 500 / 500 600 / 600 Weight 150 lb 152 lb 1.903 oz 145 lb 8.081 oz Narrative: He is resting comfortably this morning with eyes closed. He arouses easily. Speech remains mostly unintelligible but he answers yes and no questions appropriately. Lungs are clear anteriorly. Heart is regular. He persists with a large hematoma over the pacemaker site. He has extensive ecchymosis extending from the pacemaker site throughout his mid and upper chest. It also extends to the axilla and down the lateral chest and abdominal wall. There is some ecchymosis around the umbilicus and in his flank area. There is no redness or warmth. No drainage from the pacemaker site. Lower extremities show no edema. Assessment and Plan (1) Hematoma, chest wall Status: Acute Qualifiers: Encounter type: initial encounter Laterality: left Qualified Code(s): S20.212A - Contusion of left front wall of thorax, initial encounter Category: Medical Code(s): S20.219A - Contusion of unspecified front wall of thorax, initial encounter (2) Extensive postoperative bruising Status: Acute Category: Medical (3) Hyperbilirubinemia Status: Acute Category: Medical Code(s): E80.6 - Other disorders of bilirubin metabolism (4) Anemia requiring transfusions Status: Acute Category: Medical Code(s): D64.9 - Anemia, unspecified (5) Fall Status: Acute Category: Medical Code(s): W19.XXXA - Unspecified fall, initial encounter (6) History of permanent cardiac pacemaker placement Status: Acute Category: Surgical Code(s): Z95.0 - Presence of cardiac pacemaker (7) Chronic atrial fibrillation Status: Chronic Category: Medical Code(s): I48.2 - Chronic atrial fibrillation (8) Essential hypertension Status: Chronic Category: Medical Code(s): I10 - Essential (primary) hypertension (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
[2020-10-05 12:00] VITALS: BP 175/84; PULSE 55; RESP 19; TEMP 36.3; O2SAT 88
--- NOTE | 2020-10-07 15:14 | HMH.DCSUM ---
General - General Admission date:: 10/03/20 <Carlton Quinteros - 11/05/20 15:33> 10/03/20 <Abril Restrepo - 10/07/20 15:21> Discharge date: 10/05/20 <Abril Restrepo - 10/07/20 15:21> HPI HPI: 80-year-old male presented to the emergency room after a fall. Patient is a poor historian. Patient is very hard of hearing. No family is with patient at this time. EMS stated and daughter called due to patient was found lying on the floor. Patient did not lose consciousness. said she was unable to get patient up. EMS stated patient may have laid on the floor for 1 to 2 hours prior to their arrival. Patient is able to answer simple questions. Patient denies chest pain, tightness or pressure. Patient denies shortness of breath. Patient is on O2 at 2 L by nasal cannula. Pulse ox 98% on the 2 L. Patient complains of left hip and left arm pain. No obvious deformities noted. Patient does have a good left pedal pulse and left radial pulse. Patient is postop pacemaker implantation on 09/26/2020. Patient did have pacemaker implanted at this facility by Dr. Almonte. Patient was asked to stop his Eliquis prior to having a pacemaker implanted. Patient and family did not stop the Eliquis and therefore a large hematoma appeared at pacemaker site. Patient is 1 week postop. Hematoma noted with excessive amount of bruising down the left arm radiating to the mid back area. Paresh at the incision site are clean and dry. No drainage noted at the site. Patient denies pain at the pacemaker site. Patient was downloaded today there was no events noted. Did look like patient did have a high heart rate of 170 bpm on October 01, 2020. Dr. Dela Cruz ordered lab work. Lab work revealed Hgb 7.8/ HCT 23.8. CT scan of chest was also ordered showing a probable large hematoma immediately beneath the pacemaker with measurements as described showing smooth well-defined borders and extrinsically compressing the left pectoralis major muscle somewhat. Due to the critical status of this pt, pt will be admitted under PCP. Recommend to infuse 1-2 units of PRBC (per PCP).. Monitor pt's cardiac status. Stop Eluiquis due to hematoma and low hemoglobin. (above as per Cardiology) <Abril Restrepo - 10/07/20 15:21> Hospital Course Hospital Course: The patient had multiple images taken. His cervical spine CT showed no fracture. His chest x-ray showed soft tissue prominence in the left upper calf and subclavian region. His head CT showed nothing acute. His hip x-ray showed nothing acute. His chest CT showed a probable large hematoma immediately beneath the pacemaker compressing the left pectoralis major muscle. The patient was admitted and cardiology was consulted. His blood thinner was held and he was transfused with 2 units of packed red blood cells and started on IV fluids and blood pressure medication. Dr. Rouse did see the patient and felt the hematoma may benefit from drainage. Dr. Fernandez was consulted and he felt the risk of intervention outweighed the risk of close observation. He felt draining the hematoma would potentially increase the likelihood of infection and greater blood loss. The patient was able to rest and tried to eat. His H&H improved after transfusion. He did have some confusion and agitation and his speech was dysarthric, which was his baseline but was a bit worse than usual. His bilirubin increased as expected from his extensive bruising. Physical therapy was ordered to assess his gait and mobility as it was felt he may need some kind of short-term rehab pending his PT evaluation. The patient was seen by physical therapy and was resistive to care and inappropriate for therapy. He showed signs of agitation and aggressiveness. They felt he was unable to care for himself and was unsafe to return home with his elderly spouse and would need long-term care placement for care and safety. Care management spoke with the family
== END 2020-10-05 13:10 | disposition home health service (06) | DRG 920 ==
LOC: ER 16:16 → 2ND 16:19
PROVIDERS: Admitting Provider Family Medicine; Emergency Provider Emergency Medicine; PCP Family Medicine; Visit Provider Family Medicine
DX: I97.638 Postprocedural hematoma of a circulatory system organ or structure following other circulatory system procedure (principal); I48.20 Chronic atrial fibrillation, unspecified; T45.515A Adverse effect of anticoagulants, initial encounter; D64.9 Anemia, unspecified; Z95.0 Presence of cardiac pacemaker; W19.XXXA Unspecified fall, initial encounter; F03.90 Unspecified dementia, unspecified severity, without behavioral disturbance, psychotic disturbance, mood disturbance, and anxiety; J44.9 Chronic obstructive pulmonary disease, unspecified; F17.210 Nicotine dependence, cigarettes, uncomplicated; I49.5 Sick sinus syndrome; H91.90 Unspecified hearing loss, unspecified ear; I12.9 Hypertensive chronic kidney disease with stage 1 through stage 4 chronic kidney disease, or unspecified chronic kidney disease; N18.9 Chronic kidney disease, unspecified; E78.5 Hyperlipidemia, unspecified; Z79.01 Long term (current) use of anticoagulants; Z79.82 Long term (current) use of aspirin; Z79.899 Other long term (current) drug therapy; Z86.73 Personal history of transient ischemic attack (TIA), and cerebral infarction without residual deficits; Z85.9 Personal history of malignant neoplasm, unspecified; Z91.19 Patient's noncompliance with other medical treatment and regimen; Z84.1 Family history of disorders of kidney and ureter
CPT/HCPCS: 36430; 36415; 70450; 71045; 71250; 72125; 73502; 80053; 85007; 85025; 85610; 86328; 86850; 97162; 99284; P9016

== ENCOUNTER 2020-10-19 14:55 | Emergency (ER) | payer MEDICARE, MEDICAID, SELFPAY ==
[2020-10-19 14:58] VITALS: BP 196/89; PULSE 66; RESP 18; TEMP 36.4; O2SAT 97; BMI 20.7
--- NOTE | 2020-10-19 15:18 | PC.NURSE ---
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
--- NOTE | 2020-10-19 15:21 | PC.NURSE ---
Doctor Jm speaking with Gage at this time.
--- NOTE | 2020-10-19 15:21 | HMH.EDSKAF ---
ED Disposition Clinical Impression: Surgical complication Qualifiers: Surgical complication system/body Area: skin Surgical complication type: hematoma Timing of complication: postoperative complication Procedure type: non-dermatologic Qualified Code(s): L76.32 - Postprocedural hematoma of skin and subcutaneous tissue following other procedure Disposition: Home, Self-Care Condition on Discharge: Good Instructions: DI for Skin Abscess Referrals: Carlton Quinteros MD [Primary Care Provider] - Lemuel Almonte MD [Staff Physician] - 10/22/20 9:00 am Time of Disposition: 15:40 - Critical Care Critical Care Time: No Attestation: On 10/19/20, the high probability of a clinically significant, sudden or life threatening deterioration of the following system(s) required my full and direct attention, intervention and personal management. The time I documented below is in addition to time spent performing reported procedures but includes the following listed in this critical care notation. Medical Decision Making - Medical Records Medical records reviewed: Yes: I reviewed the patient's medical records. - Lyle Inquiry Pt receiving controlled substance: No Vital Signs: 10/19/20 14:58 Temperature 97.5 F L Temperature Source Oral Pulse Rate [Right Radial] 66 Respiratory Rate 18 Blood Pressure [Right Arm] 196/89 H Blood Pressure Mean [Right Arm] 124 Blood Pressure Source [Right Arm] Automatic Cuff Blood Pressure Position [Right Arm] Sitting 02 Sat by Pulse Oximetry 97 Oxygen Delivery Method Room Air Medical Decision Narrative: 80yo M evaluated for bleeding from his surgical site. Patient has a defect in his suture line about the size of a ballpoint pen. This was discussed with Dr. Almonte via phone. He requested Betadine swab followed by Neosporin and 4 x 4 gauze covered with Tegaderm or other occlusive dressing. He agrees to see the patient in the office on Thursday at 9 AM. Patient skin is not erythematous, warm. No other signs of infection. Dr. Almonte agrees no indication for antibiotics at this time. Patient is appropriate and stable for discharge home. Skin/Abscess/FB HPI - General Chief complaint: Skin/Abscess/Foreign Body Stated complaint: pace maker incision bleeding Time Seen by Provider: 10/19/20 14:55 Mode of Arrival: Ambulatory Limitations: No Limitations Description of Symptoms (Recalled from ER Triage Doc. by RN): Pt home health nurse was at his residence evaluating pt today when she noted bleeding from pacemaker incision site. Pt family reports steven were taken out of incision thursday of this week. Small open area noted incision, bleedingt noted from area. Pt has a large hematoma in area of pacemaker (this is not new per family and medical record), old bruising noted. - History of Present Illness HPI narrative: 80yo M the recently underwent cardiac pacemaker implantation presents the emergency department secondary to bleeding from his surgical site. Patient suffered a large hematoma after the procedure. For this reason his steven stayed in a week longer than normally planned. [facility] removed recently. Home health saw the patient today and sent the patient to the emergency department. Patient is accompanied by his who states he has no fever, cough, nausea/vomit/diarrhea. No other complaints or concerns today. - Related Data Home Medications Medication Instructions Recorded Confirmed Oxybutynin Chloride [Oxybutynin 15 mg PO HS 05/12/19 10/03/20 Chloride ER] memantine ER 28 mg-donepezil 10 mg 1 cap PO HS 11/15/19 10/03/20 capsule sprinkle,ext.release 24 hr Atorvastatin Calcium [Lipitor 20mg 20 mg PO DAILY 10/03/20 10/03/20 Tab] Hydralazine HCl [Hydralazine HCl 25 mg PO TID 10/03/20 10/03/20 25mg Tablet] Isosorbide Dinitrate [Isordil 10mg 10 mg PO TID 10/03/20 10/03/20 tablet] apixaban 2.5 mg tablet 2.5 mg PO BID 10/03/20 10/03/20 aspirin 81 mg table
[2020-10-19 15:26] VITALS: BP 176/77; PULSE 70; O2SAT 100
[2020-10-19 15:30] VITALS: BP 182/87; PULSE 71; O2SAT 98
--- NOTE | 2020-10-19 15:56 | PC.NURSE ---
area from pacemaker incision site cleaned with betadine, neosporin applied, 4x4 sterile guaze and tegaderm dressing applied per ER MD instructions.
[2020-10-19 16:08] VITALS: BP 182/87; PULSE 71; RESP 18; TEMP 36.4; O2SAT 98
== END 2020-10-19 16:09 | disposition home or self-care (01) ==
PROVIDERS: Emergency Provider Family Medicine; PCP Family Medicine
DX: L76.32 Postprocedural hematoma of skin and subcutaneous tissue following other procedure (principal); Z95.0 Presence of cardiac pacemaker; I10 Essential (primary) hypertension; I48.91 Unspecified atrial fibrillation; J44.9 Chronic obstructive pulmonary disease, unspecified; F03.90 Unspecified dementia, unspecified severity, without behavioral disturbance, psychotic disturbance, mood disturbance, and anxiety; E78.5 Hyperlipidemia, unspecified; Z79.899 Other long term (current) drug therapy
CPT/HCPCS: 99282

== ENCOUNTER 2020-10-23 17:41 | Emergency (ER) | payer MEDICARE, MEDICAID, SELFPAY ==
[2020-10-23 17:44] VITALS: BP 163/71; PULSE 66; RESP 16; TEMP 36.6; O2SAT 93; BMI 17.7
--- NOTE | 2020-10-23 18:06 | [facility].EDGENADL ---
ED Disposition Clinical Impression: Encounter for medical screening examination Disposition: Home, Self-Care Condition on Discharge: Good Instructions: DI for Alzheimer Disease Referrals: Rory Menendez MD [Staff Physician] - - Critical Care Critical Care Time: No Attestation: On , the high probability of a clinically significant, sudden or life threatening deterioration of the following system(s) required my full and direct attention, intervention and personal management. The time I documented below is in addition to time spent performing reported procedures but includes the following listed in this critical care notation. Medical Decision Making - Medical Records Medical records reviewed: Yes: I reviewed the patient's medical records. - Lyle Inquiry Pt receiving controlled substance: No Vital Signs: 10/23/20 17:44 Temperature 97.9 F Temperature Source Oral Pulse Rate [Right Brachial] 66 Respiratory Rate 16 Blood Pressure [Right Arm] 163/71 H Blood Pressure Mean [Right Arm] 101 Blood Pressure Source [Right Arm] Automatic Cuff Blood Pressure Position [Right Arm] Sitting 02 Sat by Pulse Oximetry 93 L Oxygen Delivery Method Room Air Medical Decision Narrative: 80-year-old male sent to the emergency department for evaluation of agitation. On my initial examination, patient is sitting comfortably. He is completely appropriate. He does have baseline dementia. However he is not displaying any hostile behavior. He is not suicidal homicidal. Patient has normal vital signs. No obvious deformity. Patient will be discharged back to family members. They should arrange evaluation by PCP for further management. Given strict return precautions. Verbalized understanding. General Adult HPI - General Chief complaint: Medical Clearance Stated complaint: ams Time Seen by Provider: 10/23/20 17:45 Mode of Arrival: Ambulatory Limitations: No Limitations Description of Symptoms (Recalled from ER Triage Doc. by RN): Psychiatric Evaluation - History of Present Illness HPI narrative: This is a 80-year-old male with history of dementia presenting to the emergency department for medical screening examination. Apparently the patient got very agitated and was getting hostile with family members. The police did come to the scene and the patient was found pacing around the [employer] van [employer]. He states that he was very worked up. They brought him to the emergency department for evaluation. On my initial evaluation, the patient is sitting comfortably. He states that he was just upset. He denies any headache or change in vision. No focal weakness. No chest pain or shortness of breath. No abdominal pain or vomiting. No fevers or chills. - Related Data Home Medications Medication Instructions Recorded Confirmed Oxybutynin Chloride [Oxybutynin 15 mg PO HS 05/12/19 10/03/20 Chloride ER] memantine ER 28 mg-donepezil 10 mg 1 cap PO HS 11/15/19 10/03/20 capsule sprinkle,ext.release 24 hr Atorvastatin Calcium [Lipitor 20mg 20 mg PO DAILY 10/03/20 10/03/20 Tab] Hydralazine HCl [Hydralazine HCl 25 mg PO TID 10/03/20 10/03/20 25mg Tablet] Isosorbide Dinitrate [Isordil 10mg 10 mg PO TID 10/03/20 10/03/20 tablet] apixaban 2.5 mg tablet 2.5 mg PO BID 10/03/20 10/03/20 aspirin 81 mg tablet,delayed 81 mg PO DAILY 10/04/20 10/04/20 release lorazepam 0.5 mg tablet 0.5 mg PO HS PRN tab 10/09/20 10/09/20 Allergies Allergy/AdvReac Type Severity Reaction Status Date / Time No Known Allergies Allergy Verified 10/23/20 11:01 [facility] History - Hepatitis A Screen Drug use history?: No High risk sexual behaviors?: No History of sexually transmitted infection?: No Currently employed?: No Childcare worker?: No Do you have indoor plumbing?: Yes Do you have electricity?: Yes Attestation statement:: This patient has been screened for Hepatitis A risk factors. I have reviewed the patient's past medic
[2020-10-23 18:14] VITALS: BP 160/70; PULSE 65; RESP 16; TEMP 36.6; O2SAT 95
== END 2020-10-23 18:19 | disposition home or self-care (01) ==
PROVIDERS: Emergency Provider Emergency Medicine
DX: Z00.8 Encounter for other general examination (principal); F03.90 Unspecified dementia, unspecified severity, without behavioral disturbance, psychotic disturbance, mood disturbance, and anxiety; I48.91 Unspecified atrial fibrillation; J44.9 Chronic obstructive pulmonary disease, unspecified; E78.5 Hyperlipidemia, unspecified; I10 Essential (primary) hypertension; Z86.73 Personal history of transient ischemic attack (TIA), and cerebral infarction without residual deficits; Z95.0 Presence of cardiac pacemaker; F17.210 Nicotine dependence, cigarettes, uncomplicated
CPT/HCPCS: 99281